=== PATIENT | female | born 1980 | race Two or more races ===

== ENCOUNTER 2021-11-24 16:16 | Outpatient (REF) | payer OTHER, SELFPAY ==
--- NOTE | ~2021-11-24 | MM_ITS ---
EXAMINATION: MM SCREENING DIGITAL BREAST TOMOSYNTHESIS, BILATERAL CLINICAL INFORMATION: Screening. Asymptomatic. No prior mammography. Age 41. No known family history breast cancer. The lifetime risk of breast cancer based on the Tyrer-Cuzick Model is 7%. COMPARISON: None (current study represents initial baseline exam). TECHNIQUE: Digital breast tomosynthesis is performed in both the craniocaudal and mediolateral oblique views along with computer-aided detection (CAD). Synthesized 2D images are generated from the tomosynthesis. FINDINGS: There are scattered areas of fibroglandular density (ACR BI-RADS breast composition Category b). There are no significant masses, abnormal calcifications, or other abnormalities. The axilla and skin contours are unremarkable. MM/MM tomosynthesis screening BI IMPRESSION: No mammographic evidence of malignancy. ASSESSMENT: BI-RADS 1: Negative RECOMMENDATION: Routine annual mammography screening. This patient's information was entered into a reminder system with a target due date for their next mammogram.
== END 2021-11-24 16:17 | disposition home or self-care (01) ==
LOC: HO.MAMMO 16:16
PROVIDERS: Visit Provider Nurse Practitioner Family
DX: Z12.31 Encounter for screening mammogram for malignant neoplasm of breast (principal)
CPT/HCPCS: 77063; 77067

== ENCOUNTER 2022-04-04 15:38 | Outpatient (REF) | payer OTHER, SELFPAY ==
--- NOTE | ~2022-04-04 | US_ITS ---
EXAMINATION: US PELVIS CLINICAL INFORMATION: Abnormal vaginal bleeding. Dyspareunia. Dysmenorrhea. COMPARISON: None. TECHNIQUE: Ultrasound of the pelvis is performed using both transabdominal and transvaginal transducers along with Doppler. Transvaginal imaging is performed due to inadequate visualization transabdominally. FINDINGS: Uterus: The uterus is anteverted, anteflexed and measures 7.3 x 4.1 x 5.8 cm. The double wall endometrial thickness is 0.7 cm. The uterus is smooth in contour and has normal myometrial echogenicity. No visible fibroid. Adnexa: Both ovaries are visualized. There is normal color flow to the adnexa. There is no ovarian torsion. There is no pelvic ascites or fluid collection. Right ovary measures 2.9 x 1.4 x 1.3 cm and volume 2.8 mL. Left ovary measures 2.6 x 1.4 1.8 cm and volume 3.4 mL. US/US pelvic and transvaginal IMPRESSION: Anteverted uterus appears unremarkable. The ovaries are unremarkable. There is no free fluid in the cul-de-sac.
== END 2022-04-04 15:39 | disposition home or self-care (01) ==
LOC: HO.US 15:38
PROVIDERS: Visit Provider Nurse Practitioner Family
DX: N93.9 Abnormal uterine and vaginal bleeding, unspecified (principal); N94.10 Unspecified dyspareunia; N94.6 Dysmenorrhea, unspecified
CPT/HCPCS: 76830; 76856

== ENCOUNTER 2022-05-18 15:12 | Outpatient (REF) | payer OTHER, SELFPAY ==
[2022-05-19 14:03] LABS: CT PCR NOT DETECTED (Not Detect.); NG PCR NOT DETECTED (Not Detect.)
[2022-05-20 09:14] LABS: BV Int Neg Control Negative (Negative)
[2022-05-20 09:15] LABS: BV Int Pos Control Positive (Positive)
== END 2022-05-18 15:13 | disposition home or self-care (01) ==
LOC: HO.LAB 15:12
PROVIDERS: Visit Provider Advanced Practice Midwife
DX: Z11.3 Encounter for screening for infections with a predominantly sexual mode of transmission (principal); N92.0 Excessive and frequent menstruation with regular cycle; N94.6 Dysmenorrhea, unspecified; Z20.2 Contact with and (suspected) exposure to infections with a predominantly sexual mode of transmission
CPT/HCPCS: 87480; 87491; 87510; 87591; 87660; 99202

== ENCOUNTER 2022-07-27 | Outpatient (REF) | payer OTHER, SELFPAY | END 2022-07-27 00:01 | disposition home or self-care (01) | LOC: HO.LAB | PROVIDERS: Visit Provider Advanced Practice Midwife | DX: N93.9 Abnormal uterine and vaginal bleeding, unspecified (principal); N94.6 Dysmenorrhea, unspecified; N92.0 Excessive and frequent menstruation with regular cycle; R21 Rash and other nonspecific skin eruption | CPT/HCPCS: 58100; 81025; 88305 ==

== ENCOUNTER → 2022-08-10 15:02 | Outpatient (BNVA) | payer OTHER, SELFPAY | PROVIDERS: Visit Provider Advanced Practice Midwife | DX: Z71.2 Person consulting for explanation of examination or test findings (principal); N92.0 Excessive and frequent menstruation with regular cycle; N94.6 Dysmenorrhea, unspecified; R21 Rash and other nonspecific skin eruption | CPT/HCPCS: 99212 ==

== ENCOUNTER 2023-10-04 16:16 | Outpatient (REF) | payer OTHER, SELFPAY ==
[2023-10-04 17:31] LABS: Hematocrit 32.9 % (37.0-47.0); Hemoglobin 10.5 g/dl (12.0-16.0); Mean Corpuscular HGB Conc 31.9 g/dl (31.0-35.0); Mean Corpuscular Hemoglobin 23.3 pg (27.0-33.0); Mean Corpuscular Volume 73.1 fL (80.0-98.0); Mean Platelet Volume 10.3 fL (9.4-12.3); Platelet Count 291 X10*3/uL (160-400); Red Cell Distribution Width 16.1 % (11.0-16.0); White Blood Count 5.5 X10*3/uL (4.8-10.8)
[2023-10-04 17:47] LABS: Alanine Aminotransferase 21 U/L (0-31); Albumin Level 4.3 g/dL (3.5-5.0); Alkaline Phosphatase 88 U/L (39-117); Anion Gap 7 (12-20); Aspartate Amino Transferase 21 U/L (5-31); Bilirubin Total 0.3 mg/dL (0.0-1.0); Blood Urea Nitrogen 6 mg/dL (9-16); Calcium 8.8 mg/dL (8.4-10.2); Carbon Dioxide 25 mmol/L (22-29); Chloride 111 mmol/L (96-108); Estimated Glomerular Filt Rate > 60; Glucose Random 93 mg/dL (60-115); Potassium 3.6 mmol/L (3.3-5.1); Sodium 139 mmol/L (135-145); Total Protein 7.9 g/dL (6.5-8.0)
[2023-10-04 18:02] LABS: Vitamin D 25-OH Total 27.6 ng/mL (>30)
[2023-10-05 05:07] LABS: HBc Num1 0.12 S/CO (0.00-0.79); HIV AB/AG Nonreactive (Nonreactive); HIV Num 1 0.05 S/CO (0.00-0.99); Hepatitis B Core Antibody Nonreactive (Nonreactive); ~HepC Num1 0.05 S/CO (0.00-0.79); ~Hepatitis C Antibody Nonreactive (Nonreactive)
[2023-10-05 05:09] LABS: Syphilis Screen Nonreactive (Nonreactive)
== END 2023-10-04 16:17 | disposition home or self-care (01) ==
LOC: HO.HHCL 16:16
PROVIDERS: Visit Provider Internal Medicine
DX: E55.9 Vitamin D deficiency, unspecified (principal); N92.6 Irregular menstruation, unspecified; Z11.3 Encounter for screening for infections with a predominantly sexual mode of transmission
CPT/HCPCS: 36415; 80053; 82306; 85027; 86704; 86780; 86803; 87389

== ENCOUNTER 2024-01-03 08:55 | Outpatient (REF) | payer OTHER, SELFPAY ==
[2024-01-03 12:58] LABS: Iron 20 mcg/dL (30-160); Percent Iron Saturation 5 % (15-50); Total Iron Binding Capacity 409 mcg/dL (228-428); Unsaturated Iron Binding 389 ug/dL
[2024-01-03 13:20] LABS: Ferritin 13 ng/mL (10-250)
== END 2024-01-03 08:56 | disposition home or self-care (01) ==
LOC: HO.HHCL 08:55
PROVIDERS: Visit Provider Nurse Practitioner
DX: D64.9 Anemia, unspecified (principal)
CPT/HCPCS: 36415; 82728; 83540; 84443

== ENCOUNTER 2024-01-18 15:28 | Outpatient (REF) | payer OTHER, SELFPAY | END 2024-01-18 15:29 | disposition home or self-care (01) | LOC: HO.MAMMO 15:28 | PROVIDERS: PCP Nurse Practitioner; Visit Provider Nurse Practitioner | DX: Z12.31 Encounter for screening mammogram for malignant neoplasm of breast (principal) | CPT/HCPCS: 77063; 77067 ==

== ENCOUNTER → 2024-01-18 15:45 | Outpatient (BNV) | payer OTHER, SELFPAY | PROVIDERS: PCP Nurse Practitioner; Visit Provider Radiology Diagnostic Radiology | DX: Z12.31 Encounter for screening mammogram for malignant neoplasm of breast (principal) | CPT/HCPCS: 77063; 77067 ==

== ENCOUNTER 2024-06-19 16:36 | Outpatient (REF) | payer OTHER, SELFPAY ==
[2024-06-19 18:25] LABS: MANUAL DIFF FLAG NO
[2024-06-19 18:38] LABS: Basophils Percent Auto 0.1 % (0-2); Eosinophils Absolute Auto 0.3 X10*3/uL (0.0-0.4); Eosinophils Percent Auto 3.9 % (0-4); Hematocrit 32.6 % (37.0-47.0); Hemoglobin 10.3 g/dl (12.0-16.0); Imm Gran Abs Auto 0.01 X10*3/uL (0.00-0.03); Imm Gran Pct Auto 0.1 % (0.0-0.4); Lymphocytes Percent Auto 27.2 % (20-40); Mean Corpuscular HGB Conc 31.6 g/dl (31.0-35.0); Mean Corpuscular Hemoglobin 23.8 pg (27.0-33.0); Mean Corpuscular Volume 75.5 fL (80.0-98.0); Mean Platelet Volume 9.9 fL (9.4-12.3); Monocytes Absolute Auto 0.5 X10*3/uL (0.1-1.2); Monocytes Percent Auto 6.5 % (2-11); Neutrophils Absolute Auto 4.5 x10*3/uL (2.0-8.3); Neutrophils Percent Auto 62.2 % (45-73); Platelet Count 342 X10*3/uL (160-400); Red Blood Count 4.32 X10*6/uL (4.20-5.50); Red Cell Distribution Width 15.9 % (11.0-16.0); White Blood Count 7.3 X10*3/uL (4.8-10.8)
[2024-06-20 05:15] LABS: HBsAGNum1 0.28 S/CO (0.00-0.99); Hepatitis B Surface Antigen Negative (Negative); ~Hepatitis B Surface Antibody REACTIVE (Nonreactive)
[2024-06-21 11:51] LABS: Anion Gap 14 (12-20); Blood Urea Nitrogen 10 mg/dL (9-16); Calcium 8.9 mg/dL (8.4-10.2); Carbon Dioxide 21 mmol/L (22-29); Chloride 110 mmol/L (96-108); Estimated Glomerular Filt Rate > 60; Glucose Random 92 mg/dL (60-115); Iron 18 mcg/dL (30-160); Percent Iron Saturation 4 % (15-50); Potassium 4.5 mmol/L (3.3-5.1); Sodium 140 mmol/L (135-145); Total Iron Binding Capacity 413 mcg/dL (228-428); Unsaturated Iron Binding 395 ug/dL
[2024-06-21 12:05] LABS: Ferritin 8 ng/mL (10-250); Vitamin D 25-OH Total 23.9 ng/mL (>30)
== END 2024-06-19 16:37 | disposition home or self-care (01) ==
LOC: HO.HHCL 16:36
PROVIDERS: Visit Provider Nurse Practitioner
DX: D50.0 Iron deficiency anemia secondary to blood loss (chronic) (principal); A64 Unspecified sexually transmitted disease; D64.9 Anemia, unspecified; E55.9 Vitamin D deficiency, unspecified
CPT/HCPCS: 36415; 80048; 82306; 82728; 83540; 85025; 86706; 87340

== ENCOUNTER 2024-10-23 18:44 | Emergency (ER) | payer OTHER, SELFPAY ==
--- NOTE | ~2024-10-23 | CT_ITS ---
EXAMINATION: CT HEAD WITHOUT CONTRAST CLINICAL INFORMATION: Headache. Visual changes. COMPARISON: None available. TECHNIQUE: Contiguous axial imaging was performed from the skull base to vertex without intravenous administration of contrast. This CT examination was performed using dose optimization techniques as appropriate, variously including the following: *Automated exposure control. *Adjustment of mA and/or kV according to patient size (this includes techniques or standardized protocols for targeted exams where dose is matched to indication/reason for exam; i.e. extremities or head). *Use of iterative reconstruction technique. DLP: 562 mGy-cm FINDINGS: There is no evidence of acute intracranial hemorrhage or edematous territorial infarction. Mtz-white matter differentiation is preserved. There is no abnormal attenuation within the brain parenchyma. The ventricles are normal in morphology and size. No evidence for obstructive hydrocephalus. The suprasellar cistern remains widely patent. Normal positioning of the cerebellar tonsils. No abnormal mass effect or midline shift. No extra-axial fluid collections. No acute soft tissue or osseous abnormalities. Mild mucosal thickening of the paranasal sinuses. The mastoid air cells and middle ear cavities are clear. No demonstrated abnormalities of the orbits on limited evaluation. CT/CT head/brain wo IV con IMPRESSION: No evidence of acute intracranial hemorrhage or edematous territorial infarction. Electronically signed by: Jack Conrad DO 10/23/2024 09:33 PM EST
--- NOTE | 2024-10-23 18:49 | ED_ITS ---
HPI - Headache General Chief Complaint: Headache Stated Complaint: blurry vision/headache Time Seen by Provider: 10/23/24 21:42 Source: patient Mode of arrival: ambulatory Limitations: no limitations History of Present Illness ED Provider: zaheer YU Narrative: Patient with no significant past medical history noticing flushing of the light from the left eye and started having headache today on the left side with light sensitivity no nausea no vomiting never had migraine headaches before patient had labs and CT scan done prior to my evaluation which was normal no loss of vision no fever no chills Related Data Home Medications ?Medication ?Instructions ?Recorded ?Confirmed cholecalciferol (vitamin D3) 25 25 mcg PO DAILY 05/18/22 mcg (1,000 unit) capsule ferrous sulfate 325 mg (65 mg 325 mg PO DAILY 05/18/22 iron) tablet (Feosol) Previous Rx's ?Medication ?Instructions ?Recorded hdncunqjjs-jpacvvazvglws-jfpdmzge 1 tab PO Q6H PRN haeadace #20 tabs 10/23/24 50 mg-325 mg-40 mg tablet Allergies Allergy/AdvReac Type Severity Reaction Status Date / Time No Known Allergies Allergy Verified 10/23/24 18:56 Review of Systems 2 Review of Systems: Yes all other systems are reviewed and are negative PMFSH Past Medical History Medical History Anemia Surgical History Hx of section Family History Family History Father Cirrhosis Social History Social History Household Members: Spouse and Children Housing: Apartment Alcohol intake: never Patient Tobacco Use Status: Never used Tobacco Advance Directives: No Advance Directives Information Provided: No Sexual orientation: Straight/Heterosexual Gender identity: Female Physical Exam 2 Vital Signs: Vital Signs: Last Vital Signs Temp 98.1 F 10/24/24 00:28 Pulse 60 10/24/24 00:28 Resp 18 10/24/24 00:28 BP 111/66 10/24/24 00:28 Pulse Ox 99 10/24/24 00:28 O2 Del Method Room Air 10/24/24 00:28 BMI result Body Mass Index 28.2 Appearance: Alert. Oriented X3. No acute distress. Eyes: No pallor or icterus fundus normal bilaterally EOMI visual hoffman normal ENT: Pharynx normal. Oral Mucosa moist no tenderness of temporal artery Neck: Normal inspection. Neck supple. CVS: Normal heart rate and rhythm. Pulses normal. Respiratory: No respiratory distress. Equal air entry bilateral, no wheezing/rales/rhonchi Abdomen: Soft and nontender. Bowel sounds are present, no mass palpable, no CVA tenderness Skin: Skin warm and dry. Normal skin color. Normal skin turgor. Extremities: No lower extremity edema. No calf tenderness Neuro: Oriented X 3. No motor deficit. No sensory deficit.No cerebellar signs , cranial nerves II-XII intact Course Course Course Narrative: This is a Rapid Medical Exam performed in triage by Mónica Colunga PA-C. Full HPI, ROS and PE to be performed by primary ED provider. 44-year-old Mongolian-speaking female with a past medical history of anemia presenting to the ED c/o headache & blurry vision x1 week. Admits to seeing a lot of colors in vision , described as flashing lights, worse in left eye. Denies recent eye procedures. denies glasses or contacts. denies taking AC PE: ambulating w/steady gait, nonfocal Plan: labs, CT, viral testing Medications Administered Discontinued Medications Generic Name Dose Route Start Last Admin Trade Name Freq PRN Reason Stop Dose Admin Diphenhydramine HCl 25 mg 10/24/24 00:05 10/24/24 00:28 Diphenhydramine Hcl 25 Mg Capsule PO 10/24/24 00:06 Not Given ONCE ONE Sumatriptan Succinate 6 mg 10/23/24 22:10 10/23/24 22:41 Sumatriptan Succinate 6 Mg/0.5 Ml Vial SUBCUT 10/23/24 22:11 6 mg ONCE ONE Administration Medical Decision Making Medical Decision Making [facility] Narrative: Patient with left-sided headache with light sensitivity likely migraine headache will give Imitrex Patient is feeling much better after Imitrex Lab Data [facility] Lab Attestation statement: I reviewed the patient's lab results. 10/23/24 19:10 10/23/24 19:10 Labs: Lab Results 10/23/24 Range/Units 19:10 WBC 6.3 (4.8-10.8) X10*3/uL RBC 4.03 L (4.20-5.50) X10*6/uL Hgb 9.3 L (12.0-16.0) g/dl Hct 29.1 L (37.0-47.0) % MCV 72.2 L (80.0-98.0) fL MCH 23.1 L (27.0-33.0) pg MCHC 32.0 (31.0-35.0) g/dl RDW 15.9 (11.0-16.0) % Plt Count 294 (160-400) X10*3/uL MPV 9.0 L (9.4-12.3) fL Immature Gran % (Auto) 0.3 (0.0-0.4) % Neut % (Auto) 54.1 (45-73) % Lymph % (Auto) 35.6 (20-40) % [place] % (Auto) 7.3 (2-11) % Eos % (Auto) 2.4 (0-4) % Baso % (Auto) 0.3 (0-2) % Lymph # (Auto) 2.3 (1.2-4.9) X10*3/uL [place] # (Auto) 0.5 (0.1-1.2) X10*3/uL Eos # (Auto) 0.2 (0.0-0.4) X10*3/uL Baso # (Auto) 0.0 (0.0-0.2) X10*3/uL Abs Immat Gran (auto) 0.02 (0.00-0.03) X10*3/uL Absolute Neuts (auto) 3.4 (2.0-8.3) x10*3/uL Absolute Nucleated RBC 0.000 (0.0-0.012) X10*3/uL Nucleated RBC % (auto) 0.0 (0.0-0.2) /100WBC PT 11.7 (10.9-12.4) SEC INR 1.0 (0.9-1.1) Sodium 141 (135-145) mmol/L Potassium 3.8 (3.3-5.1) mmol/L Chloride 107 (96-108) mmol/L Carbon Dioxide 23 (22-29) mmol/L Anion Gap 15 (12-20) BUN 13 (9-16) mg/dL Creatinine 0.80 (0.5-1.4) mg/dL Estim Creat Clear Calc 85.3 Estimated GFR > 60 Random Glucose 102 (60-115) mg/dL Calcium 8.2 L D (8.4-10.2) mg/dL Magnesium 2.3 (1.6-2.6) mg/dL Total Bilirubin 0.2 (0.0-1.0) mg/dL Direct Bilirubin < 0.2 (0.0-0.5) mg/dL AST 28 (5-31) U/L ALT 37 H (0-31) U/L Alkaline Phosphatase 91 (39-117) U/L Total Protein 7.2 (6.5-8.0) g/dL Albumin 4.0 (3.5-5.0) g/dL Influenza Type A (PCR) NEGATIVE (Negative) Influenza Type B (PCR) NEGATIVE (Negative) RSV RNA Qual (PCR) NEGATIVE (Negative) SARS-CoV-2 RNA (RT-PCR) NEGATIVE (Negative) Discharge Plan Discharge Clinical Impression: Migraine Patient Disposition: Home, Self-Care Instructions: Migraine Headache (ED) Additional Instructions: Your headache is likely from the migraine Take Fioricet 1 tablet every 6-8 hours as needed for the headache Follow up with your PCP Prescriptions: New ibhutwkkth-mdtpdzpwffegn-flxs 50-325-40 mg tablet 1 tab PO Q6H PRN (Reason: haeadace) Qty: 20 0RF No Action cholecalciferol (vitamin D3) 25 mcg (1,000 unit) capsule 25 mcg PO DAILY ferrous sulfate [Feosol] 325 mg (65 mg iron) tablet 325 mg PO DAILY Interventions: ED Discharge Assessment Last Done: 10/24/24 00:28 Discharge Date/Time: 10/24/24 00:28 Print Language: Mongolian
[2024-10-23 18:51] VITALS: BP 146/73; PULSE 82; RESP 18; TEMP 36.7; O2SAT 100; BMI 28.2
[2024-10-23 19:17] LABS: MANUAL DIFF FLAG NO
[2024-10-23 19:18] LABS: Basophils Percent Auto 0.3 % (0-2); Eosinophils Absolute Auto 0.2 X10*3/uL (0.0-0.4); Eosinophils Percent Auto 2.4 % (0-4); Hematocrit 29.1 % (37.0-47.0); Hemoglobin 9.3 g/dl (12.0-16.0); Imm Gran Abs Auto 0.02 X10*3/uL (0.00-0.03); Imm Gran Pct Auto 0.3 % (0.0-0.4); Lymphocytes Absolute Auto 2.3 X10*3/uL (1.2-4.9); Lymphocytes Percent Auto 35.6 % (20-40); Mean Corpuscular Hemoglobin 23.1 pg (27.0-33.0); Mean Corpuscular Volume 72.2 fL (80.0-98.0); Monocytes Absolute Auto 0.5 X10*3/uL (0.1-1.2); Monocytes Percent Auto 7.3 % (2-11); Neutrophils Absolute Auto 3.4 x10*3/uL (2.0-8.3); Neutrophils Percent Auto 54.1 % (45-73); Platelet Count 294 X10*3/uL (160-400); Red Blood Count 4.03 X10*6/uL (4.20-5.50); Red Cell Distribution Width 15.9 % (11.0-16.0); White Blood Count 6.3 X10*3/uL (4.8-10.8)
[2024-10-23 19:30] LABS: Alanine Aminotransferase 37 U/L (0-31); Alkaline Phosphatase 91 U/L (39-117); Anion Gap 15 (12-20); Aspartate Amino Transferase 28 U/L (5-31); Bilirubin Direct < 0.2 mg/dL (0.0-0.5); Bilirubin Total 0.2 mg/dL (0.0-1.0); Blood Urea Nitrogen 13 mg/dL (9-16); Calcium 8.2 mg/dL (8.4-10.2); Carbon Dioxide 23 mmol/L (22-29); Chloride 107 mmol/L (96-108); Creatinine Clr Calc Pharmacy 85.3; Estimated Glomerular Filt Rate > 60; Glucose Random 102 mg/dL (60-115); Magnesium 2.3 mg/dL (1.6-2.6); Potassium 3.8 mmol/L (3.3-5.1); Sodium 141 mmol/L (135-145); Total Protein 7.2 g/dL (6.5-8.0)
[2024-10-23 19:34] LABS: Prothrombin Time 11.7 SEC (10.9-12.4)
[2024-10-23 19:53] LABS: Influenza A PCR NEGATIVE (Negative); Influenza B PCR NEGATIVE (Negative); Resp Syncy Virus RNA Qual PCR NEGATIVE (Negative); SARS COV2 PCR INHOUSE NEGATIVE (Negative)
[2024-10-23 22:18] VITALS: BP 111/66; PULSE 60; RESP 18; TEMP 36.7; O2SAT 99
[2024-10-23] MEDS: SUMAtriptan succinate 6 MG/0.5 ML VIAL SUBCUT (22:41)
[2024-10-24 00:28] VITALS: BP 111/66; PULSE 60; RESP 18; TEMP 36.7; O2SAT 99
== END 2024-10-24 00:28 | disposition home or self-care (01) ==
PROVIDERS: Physician Assistant; Emergency Provider Internal Medicine; PCP Nurse Practitioner
DX: G43.909 Migraine, unspecified, not intractable, without status migrainosus (principal); Z03.818 Encounter for observation for suspected exposure to other biological agents ruled out
CPT/HCPCS: 0241U; 36415; 70450; 80048; 80076; 83735; 85025; 85610; 96372; 99283; 99284; J3030

== ENCOUNTER 2024-12-20 09:57 | Outpatient (REF) | payer OTHER, SELFPAY ==
--- OUTSIDE RECORDS SUMMARY | 2024-12-20 10:59 | XMS_ITS | Encounter Summary ---
Author Organization [employer] Address [address] [facility] 7 [place] [address] Care Team Providers Care Bathroom Tiling Professional Name Role Phone Varsha Sherman NP Primary Care Provider [phone] Reason for Visit * Reason Onset Date Comments chartprep 12/13/2024 Encounter Details Date Type Department Care Team ([facility] st Contact Info) Description 12/13/2024 Telephone [facility] [address] [place] [address] Jeff Paulino [place] chartprep Social History Tobacco Use Types Packs/Day Years Used Date Smoking Tobacco: Never Smokeless Tobacco: Never Alcohol Use Standard Drinks/Week Comments Never 0 (1 standard drink = 0.6 oz pur e alcohol) Depression Answer Date Recorded Patient Health Questionnaire-9 Score 0 06/19/2024 Patient Health Questionnaire-9 Score 0 06/19/2024 Last PHQ-9: Questionnaire Data Not on file 0 06/19/2024 Housing Stability Answer Date Recorded What is your housing situation today? I have navneet priest 09/27/[address] you li ve. Do you have problems with any of the following? None of the above 09/27/2023 Food Insecurity Answer Date Recorded Within the past 12 months, y ou worried that your food would run out before you got money to buy more: Never True 09/27/2023 Within the past 12 months,th e food you bought just didn't last and you didn't have enough money to get more: Never True 11/2022 Transportation Answer Date Recorded In the past 12 months, has l ack of transportation kept you from medical appts, meetings, work or from getting things needed for daily living? No 09/27/2023 Utilities Answer Date Recorded In the past 12 months, has t he electric, gas, oil or water company threatened to shut off services in your home? No 09/27/2023 Depression Answer Date Recorded Patient Health Questionnaire-2 Score 0 06/19/2024 Comments Unknown Sex and Gender Information Value Date Recorded Sex Assigned at Female 09/26/2022 10:17 AM EDT Legal Sex Female 10:17 AM EDT Gender Identity Female 09/26/2022 10:17 AM EDT Sexual Orientation Straight 09/26/2022 10 :17 AM EDT documented as of this encounter Miscellaneous Notes * Telephone Encounter - Jeff Paulino [place] - 12/13/2024 11:34 AM EST Chart Prep Labs: done Images: done Vaccines due: Covid Due, Hep B Due, and Flu Due Referrals: Completed Screenings: Not Applicable Overdue care gaps: SDOH and Oral Health documented in this encounter Plan of Treatment Not on file documented as of this encounter Visit Diagnoses Not on filedocumented in this encounter Additional Health Concerns Assessment Noted Time PHQ-9 Depression Total Score: 0 06/19/20 24 3:44 PM EDT documented as of this encounter Care Teams Bathroom Tiling Professional Relationship Specialty Start Date End Date Varsha Sherman NP [address] [place] [address] PCP - General Family Medicine 12/21/23 documented as of this encounter
--- OUTSIDE RECORDS SUMMARY | 2024-12-20 10:59 | XMS_ITS | Encounter Summary ---
Author Organization [facility] Address [address] [place] [id number] Care Team Providers Care Toy Designer Name Role Phone BrookfieldFátima gutierrez HOSPITAL MORTICIAN Primary Care Provider [phone] Varsha Sherman NP Primary Care Provider [phone] Eduarda Hadley MD Primary Care Provider [phone] AppraVarsha herring NP Primary Care Provider [phone] Encounter Details Date Type Department Care Team (Latest Contact Info) Description 07/21/2021 Abstract [facility] CONVERSIONS Dental, Provider, DDS Social History Tobacco Use Types Packs/Day Years Used Date Smoking Tobacco: Never Assessed Comments Unknown Sex and Gender Information Value Date Recorded Sex Assigned at Female 09/26/2022 10:17 AM EDT Legal Sex Female 10:17 AM EDT Gender Identity Female 09/26/2022 10:17 AM EDT Sexual Orientation Straight 09/26/2022 10 :17 AM EDT documented as of this encounter Plan of Treatment Not on file documented as of this encounter Visit Diagnoses Not on filedocumented in this encounter Care Teams Toy Designer Relationship Specialty Start Date End Date BrookfieldFátima FNP [address] [place] [address] PCP - General Family Medicine 07/21/22 09/04/23 Varsha Sherman NP [address] [place] [address] PCP - General Family Medicine 09/05/23 10/29/23 Eduarda Hadley MD [address] [place] [address] PCP - General Family Medicine 10/30/23 12/20/23 Varsha Sherman NP [address] [place] [address] PCP - General Family Medicine 12/21/23 documented as of this encounter
--- OUTSIDE RECORDS SUMMARY | 2024-12-20 10:59 | XMS_ITS | Encounter Summary ---
Author Organization [employer] Address [address] [facility] 7 [place] [address] Care Team Providers Care Insulating Machine Operator Name Role Phone Varsha Sherman NP Primary Care Provider [phone] Reason for Visit * Reason Comments Med Refill Encounter Details Date Type Department Care Team ([facility] st Contact Info) Description 12/20/2024 Refill [facility] [address] [place], [place] [phone] Varsha Sherman NP [address] [place] [address] Menorrhagia with regular cycle Social History Tobacco Use Types Packs/Day Years [...] housing situation today? I have navneet priest 12/20/[address] you li ve. Do you have problems with any of the following? None of the above 12/20/2024 Food Insecurity Answer Date Recorded Within the past 12 months, y ou worried that your food would run out before you got money to buy more: Never True 12/20/2024 Within the past 12 months,th e food you bought just didn't last and you didn't have enough money to get more: Never True Transportation Answer Date Recorded In the past 12 months, has l ack of transportation kept you from medical appts, meetings, work or from getting things needed for daily living? No 12/20/2024 Utilities Answer Date Recorded In the past 12 months, has t he electric, gas, oil or water company threatened to shut off services in your home? No 12/20/2024 Depression Answer Date Recorded Patient Health Questionnaire-2 Score 0 06/19/2024 Internet Access Answer Date Recorded Internet Access Q1 Yes 12/20/2024 Internet Access Q2 Not on file 12/20/2024 Comments Unknown Sex and Gender Information Value Date Recorded Sex Assigned at Female 09/26/2022 10:17 AM EDT Legal Sex Female 10:17 AM EDT Gender Identity Female 09/26/2022 10:17 AM EDT Sexual Orientation Straight 09/26/2022 10 :17 AM EDT documented as of this encounter Plan of Treatment Not on file documented as of this encounter Visit Diagnoses Diagnosis Menorrhagia with regular cycle documented in this encounter Additional Health Concerns Assessment Noted Time PHQ-9 Depression Total Score: 0 06/19/20 3:44 PM EDT documented as of this encounter Care Teams Insulating Machine Operator Relationship Specialty Start Date End Date Varsha Sherman NP [address] [place] [id number] PCP - General Family Medicine 12/21/23 documented as of this encounter
--- OUTSIDE RECORDS SUMMARY | 2024-12-20 10:59 | XMS_ITS | Encounter Summary ---
Author Organization [employer] Address [address] [facility] [address] [place] [address] Care Team Providers Care Senior Research Project Manager Name Role Phone Lane Varsha FUNG Primary Care Provider [phone] Encounter Details Date Type Department Care Team (Latest Contact Info) Description 12/20/2024 Travel Social History Tobacco Use Types Packs/Day Years [...] documented as of this encounter Care Teams Senior Research Project Manager Relationship Specialty Start Date End Date Varsha Sherman NP [address] [place] [address] PCP - General Family Medicine 12/21/23 documented as of this encounter
--- OUTSIDE RECORDS SUMMARY | 2024-12-20 11:00 | XMS_ITS | Encounter Summary ---
Author Organization [employer] [facility] Address [address] [place] [address] [address] [address] Care Team Providers Care Director Of Elementary Education Name Role Phone WolfforthFátima gutierrez DEMOLITION HAMMER OPERATOR Primary Care Provider [phone] AppraVarsha herring NP Primary Care Provider [phone] Eduarda Hadley MD Primary Care Provider [phone] Appranevaeh, Varsha FUNG Primary Care Provider [phone] Encounter Details Date Type Department Care Team (Latest Contact Info) Description 03/07/2019 Abstract [facility] CONVERSIONS Dental, Provider, DDS Social History Tobacco [...] on filedocumented in this encounter Care Teams Director Of Elementary Education Relationship Specialty Start Date End Date Fátima Deluna FNP [address] [place] [address] PCP - General Family Medicine 07/21/22 09/04/23 Varsha Sherman NP [address] [place] [address] PCP - General Family Medicine 09/05/23 10/29/23 Eduarda Hadley MD [address] [place] [address] PCP - General Family Medicine 10/30/23 12/20/23 Varsha Sherman NP [address] [place] [address] PCP - General Family Medicine 12/21/23 documented as of this encounter
--- OUTSIDE RECORDS SUMMARY | 2024-12-20 11:00 | XMS_ITS | Clinical Summary ---
Author Organization [employer] Address [address] [place] [address] 7 [place] [address] Care Team Providers Care Unix Consultant Name Role Phone Varsha Sherman NP Primary Care Provider [phone] Allergies Active Allergy Reactions Criticality Noted Date Comments Lactose Diarrhea 10/04/2023 Medications Sod Fluoride-Potass ium Nitrate 1.1-5 % pasteIndication s:Dental caries Foster teeth for 2 minutes, morning and night. Spit, do not rinse. Do not eat or drink anything for 30 minutes following brushing. 112 g 3 08/21/20 24 Active metroNIDAZOLE (Metrogel) 1 % gel APPLY TO THE AFFECTED AREA(S) TWICE DAILY 60 g 1 09/30/20 24 Active cholecalciferol (Vitamin D-3) 25 MCG tabletIndicatio ns:Other fatigue TAKE 1 TABLET BY MOUTH EVERY MORNING 30 tablet 3 10/11/20 24 Active ferrous gluconate (Fergon) 324 (38 Fe) MG tabletIndicatio ns:Microcytic anemia Take 1 tablet every other day in the morning with vitamin C 30 tablet 3 12/20/19 25 Active Ascorbic Acid (vitamin C) 250 MG tabletIndicatio ns:Microcytic anemia Take 1 tablet in the morning every other day with ferrous gluconate. 30 tablet 3 12/20/19 25 Active tranexamic acid (Lysteda) 650 MG tablet tabletIndicatio ns:Menorrhagia with regular cycle Take 3 tabs by mouth TID for 5 days during menses 15 tablet 3 12/20/19 25 Active ferrous gluconate (Fergon) 324 (38 Fe) MG tabletIndicatio ns:Anemia, unspecified type Take 1 tablet every other day in the morning with vitamin C 30 tablet 2 06/19/20 24 025 Discontinued(Re order (will not trigger notification to Pharmacy)) Ascorbic Acid (vitamin C) 250 MG tabletIndicatio ns:Anemia, unspecified type Take 1 tablet in the morning every other day with ferrous gluconate. 30 tablet 2 09/18/20 24 025 Discontinued(Re order (will not trigger notification to Pharmacy)) Active Problems Problem Noted Date Diagnosed Date Mixed stress and urge urinary incontinence 06/20 Assessment & Plan (06/20/2024 10:03 AM EDT): -POCT urinalysis negative for infection -Kegels and pelvic tilt exercises taught, if no symptom improvement, will refer to urogyn. -may use pad or panty liner for comfort -follow-up as needed STI (sexually transmitted infection) 02/06/2024 Assessment & Plan (02/06/2024 11:05 PM EDT): -determine hepatitis B status before offering vaccine Encounter for screening mamm ogram for malignant neoplasm of breast 01/03/2024 Assessment & Plan (02/06/2024 11:09 PM EDT): -completed 01/16/2024 -final read not available -will call with results once obtained Assessment & Plan (01/03/2024 10:29 AM EST): -due for routine breast cancer screening Anemia 01/03/2024 Assessment & Plan (06/20/2024 10:16 AM EDT): -continues iron supplementation with vit C every other day -encouraged to increase dietary sources of iron as well -did not complete previously ordered fecal test. Will discuss cologuard testing to determine source of anemia given normal iron panel results -repeat BMP, CBC, and iron panel ordered today -will contact with lab results -follow-up 6 months or sooner Assessment & Plan (02/06/2024 11:05 PM EDT): -likely the cause of fatigue in the setting of normal TSH and negative report of obstructive sleep apnea -fecal blood testing ordered to eval if GI blood loss is source of anemia -repeat CBC ordered to eval treatment progress -advised to continue oral iron supplementation and dietary sources -will call with lab results Assessment & Plan (01/03/2024 10:34 AM EST): -etiology of microcytic anemia unknown -hemoglobin remains low and stable Lab Results Component Value Date/Time HGB 10.1 (A) 01/03/2024 1012 HGB 10.5 (L) 10/04/2023 1621 HGB 10.7 (L) 03/08/2022 1625 HGB 10.3 (L) 10/07/2021 0952 -Fe, TIBC, ferritin, IFOBT labs completed today -every other day iron supplementation with vitamin c initiated in the interim -will consider further work-up (AUB, other causes of microcytic anemia) based on lab results -will call with lab results Fatigue 01/03/2024 Assessment & Plan (01/03/2024 10:26 AM EST): -may be due to lifestyle or anemia -vitamin D insufficient per 09/2023 labs -will investigate thyroid function -rx sent to pharmacy for repletion -daily exercise of 20-30 min advised -follow-up 1 month Routine screening for STI (sexually transmitted infection) 01/03/2024 Assessment & Plan (01/03/2024 1:07 PM EST): -denies concern for infection, but is agreeable to testing -labs ordered Rosacea 01/03/2024 Assessment & Plan (01/03/2024 1:10 PM EST): -stable per pt -refills provided Abnormal uterine bleeding (AUB) 10/12/2021 09/05/2023 Overview (06/19/2024): US ordered last visit not yet obtained US 04/04/22 Ordering Physician: Clarisa Kern NP Date of Service: 04/04/22 Procedure(s): US pelvic and transvaginal Accession Number(s): [id number] cc: Clarisa Kern SALES SECRETARY~ EXAMINATION: US PELVIS CLINICAL INFORMATION: Abnormal vaginal bleeding. Dyspareunia. Dysmenorrhea. COMPARISON: None. TECHNIQUE: Ultrasound of the pelvis is performed using both transabdominal and transvaginal transducers along with Doppler. Transvaginal imaging is performed due to inadequate visualization transabdominally. FINDINGS: Uterus: The uterus is anteverted, anteflexed and measures 7.3 x 4.1 x 5.8 cm. The double wall endometrial thickness is 0.7 cm. The uterus is smooth in contour and has normal myometrial echogenicity. No visible fibroid. Adnexa: Both ovaries are visualized. There is normal color flow to the adnexa. There is no ovarian torsion. There is no pelvic ascites or fluid collection. Right ovary measures 2.9 x 1.4 x 1.3 cm and volume 2.8 mL. Left ovary measures 2.6 x 1.4 1.8 cm and volume 3.4 mL. US/US pelvic and transvaginal IMPRESSION: Anteverted uterus appears unremarkable. The ovaries are unremarkable. There is no free fluid in the cul-de-sac. Dictated By: Yemi Welch MD Assessment & Plan (02/06/2024 11:06 PM EDT): -may be source of anemia -pelvic and transvaginal US ordered to eval for structural causes -normal thyroid function as of 01/03/24 -last pap 2021; will consider repeat based on US findings -consider sureswab to rule out STI infection at next in-person visit -complete endometrial biopsy pending US results and negative testing -discuss contraception methods for bleeding control if symptoms persist despite negative work-up -follow-up 2 months Assessment & Plan (01/03/2024 1:05 PM EST): -may be due to pre-menopause -advised monitoring for specific patterns in irregularities -negative POCT -labs ordered -will consider full work-up at next visit Vitamin D deficiency 07/18/2016 09/05/2023 Assessment & Plan (01/03/2024 1:05 PM EST): -patient reports history of -labs ordered Encounters Date Type Department Care Team Description 12/20/2024 9:00 AM EST Office Visit [facility] [address] [place] [phone] Varsha Sherman NP Microcytic anemia (Primary Dx); Anemia, unspecified type; Menorrhagia with regular cycle; Encounter for immunization; Encounter for screening mammogram for malignant neoplasm of breast; Dietary counseling; Exercise counseling 12/20/2024 Refill [facility] [address] [place] [phone] Varsha Shermna NP Menorrhagia with regular cycle 12/20/2024 Travel 12/13/[address] [phone] Jeff Paulino [place] chartprep 10/23/2024 Orders Only [facility] External Provider, [facility] 10/10/[address] [phone] Varsha Sherman NP Other fatigue 10/08/[address] [address] Varsha Sherman NP November recall 09/30/[address] [address] Varsha Sherman NP from Last 3 Months Immunizations Name Administration Dates Next Due Hep A, Adult 02/12/2020 Hep B, adult 09/21/2022,07/18/2022 Influenza Injectable Quadriv alant Preservative Free IIV4 MDCK 11/03/2020 Influenza injectable quadriv alent preservative free 09/21/2022,10/07/2021,08/23/2021,2019,11/06/2018 Influenza, seasonal, injecta ble, preservative free 12/20/2024 Tdap 07/15/2015,10/01/2013 Zoster, Recombinant 11/03/2020,08/26/2020 Social History Tobacco Use Types Packs/Day Years Used Date Smoking Tobacco: Never Smokeless Tobacco: Never Tobacco Cessation:Counseling Given: Not Answered Alcohol Use Standard Drinks/Week Comments Never 0 [...] Orientation Straight 09/26/2022 10 :17 AM EDT Last Filed Vital Signs Vital Sign Reading Time Taken Comments Blood Pressure 111/70 12/20/2024 9:09 AM EST Pulse 82 12/20/2024 9:09 AM EST Temperature 37 ??C (98.6 ??F) 12/20/2024 9:09 AM EST Respiratory Rate 22 12/20/2024 9:09 AM EST Oxygen Saturation 99% 12/20/2024 9:09 AM EST Inhaled Oxygen Concentration - - Weight 73.3 kg (161 lb 9.6 oz) 12/20/2024 9:09 A M EST Height 157.5 cm (5' 2 ) 12/20/2024 9:09 AM EST Body Mass Index 29.56 12/20/2024 9:09 AM EST Plan of Treatment Health Maintenance Due Date Last Done Comments Family Planning (PISQ) 1995 Dental X-Ray: Full Mouth 07/22/2024 07/21/2021, 03/27 COVID-19 Vaccine ( season) 2024 12/19/2021, 06/04/2021, 05/07/2021 Dental Prophylaxis 12/15/2024 06/13/2024, 0 02/16/2022, 07/21/2021, Additional history exists Dental Oral Exam 02/19/2025 08/21/2024, , 07/04/2017, Additional history exists Pap Smear 03/08/2025 03/08/2022 Dental X-Ray: Bitewings 2025 06/13/20, 01/19/2024, 11/08/2021, Additional history exists Alcohol/Substance Use Screening 06/19/2025 06/19/2024 Depression Screening 06/19/2025 06/19/2024, 06/19/20 DTaP/Tdap/Td Vaccines (3 - Td or Tdap) 07/15/2025 07/15/2015, 10/01/2013 SDOH Screening 12/20/2025 12/20/2024 Tobacco Screening 12/20/2025 12/20/2024 Mammogram 01/18/2026 01/18/2024, 10/28, 11/24/2021 Cervical Cancer Screening 03/08/2027 HPV/Cotest 03/08/2027 03/08/2022 Zoster Vaccines (2 of 2) 2030 11/03/2020, 07/30 RSV Patients and Patients Aged 60 years or older (1 - 1-dose 75+ series) 2055 Hepatitis A Vaccines Aged Out 02/12/2020 No long er eligible based on patient's age to complete this topic Hepatitis B Vaccines Discontinued 09/21/2022, 07/18/20 HIV Screening Completed 10/04/2023, 04/27, 10/07/2021 Hepatitis C Screening Completed 10/04/2023 , 07/18/2022, 05/12/2022 Influenza Vaccine Completed 12/20/2024, , 10/07/2021, Additional history exists HIB Vaccines Aged Out No longer eligi ble based on patient's age to complete this topic HPV Vaccines Aged Out No longer eligi ble based on patient's age to complete this topic IPV Vaccines Aged Out No longer eligi ble based on patient's age to complete this topic Meningococcal Vaccine Aged Out No faustina trisha eligible based on patient's age to complete this topic Pneumococcal Vaccine: Pediatrics (0 to 5 Years) and At-Risk Patients (6 to 64 Years) Aged Out No longer eligible based on patient's age to complete this topic RSV under 20 months Aged Out No longe r eligible based on patient's age to complete this topic Rotavirus Vaccines Aged Out No longer eligible based on patient's age to complete this topic Procedures Procedure Name Priority Date/Time Associated Diagnosis Comments CT HEAD WO CONTRAST Routine 10/23/2024 7 :25 PM EST PROTHROMBIN TIME-INR Routine 10/23/2024 7:10 PM EST MAGNESIUM Routine 10/23/2024 7:10 PM EST BASIC METABOLIC PANEL Routine 10/23/2024 7:10 PM EST HEPATIC FUNCTION PANEL Routine 10/23/2024 7:10 PM EST CBC WITH AUTO DIFFERENTIAL Routine 10/23/2024 7:10 PM EST SARS COV2/INFLUENZA A/B AND RSV RNA QL NAAT Routine 10/23/2024 7:10 PM EST PERIODIC ORAL EVALUATION - ESTABLISHED PATIENT Routine 08/21/2024 3:00 PM EDT Dental caries Symptomatic irreversible pulpitis Full PROPHYLAXIS - ADULT Routine 06/13/2024 3:00 PM EDT Dental plaque Dental calculus BITEWINGS - 4 RADIOGRAPHIC IMAGES Routine 06/13/2024 3:00 PM EDT BI MAMMOGRAM SCREENING TOMOSYNTHESIS BILATERAL Routine 01/18/2024 3:45 PM EST HEPATITIS C AB W/REFL TO HCV RNA, QN, PCR Routine 10/04/2023 4:21 PM EST Routine screening for STI (sexually transmitted infection) HIV 1/2 ANTIGEN/ANTIBODY, FOURTH GENERATION W/RFL Routine 10/04/2023 4:21 PM EST Routine screening for STI (sexually transmitted infection) THINPREP IMAGING PAP AND HPV MRNA E6/E7, WITH CT/NG, TRICHOMONAS Routine 03/08/2022 4:13 PM EDT DIAGNOSTIC - DIAGNOSTIC IMAGING - INTRAORAL - COMPREHENSIVE SERIES OF RADIOGRAPHIC IMAGES Routine 07/21/2021 12:00 AM EDT from Last 3 Months or Most Recently Relevant to Health Maintenance Results * CT Head w/o Contrast (10/23/2024 7:25 PM EST) Anatomical Region Laterality Modality Head, Neck Computed Tomogra phy 10/23/2024 7:25 PM EST Narrative 10/23/2024 9:37 PM EST ? [facility] ?[address] ?[place] [address] ? CT Scan Report ? Signed ? Patient: Niurka Hedrick ?MR#: [id number] ?? [id number] ? : 1980 ?Acct:[id number] ? Age/Sex: 44 / F ?ADM Date: 10/23/24 ? Loc: HO.ED ? Attending Dr: ? Ordering Physician: Mónica Colunga ?? Date of Service: 10/23/24 ?? Procedure(s): CT head/brain wo IV con ?? Accession Number(s): [id number] ? cc: Damion Sherman,Mónica PA ? EXAMINATION: ?? CT HEAD WITHOUT CONTRAST ? CLINICAL INFORMATION: ?? Headache. Visual changes. ? COMPARISON: ?? None available. ? TECHNIQUE: ?? Contiguous axial imaging was performed from the skull base to vertex ?? without intravenous administration of contrast. ? This CT examination was performed using dose optimization techniques as ?? appropriate, variously including the following: ?? *Automated exposure control. ?? *Adjustment of mA and/or kV according to patient size (this includes ?? techniques or standardized protocols for targeted exams where dose is ?? matched to indication/reason for exam; i.e. extremities or head). ?? *Use of iterative reconstruction technique. ? DLP: ?? 562 mGy-cm ? FINDINGS: ?? There is no evidence of acute intracranial hemorrhage or edematous ?? territorial infarction. Mtz-white matter differentiation is preserved. ?? There is no abnormal attenuation within the brain parenchyma. The ?? ventricles are normal in morphology and size. No evidence for ?? obstructive hydrocephalus. The suprasellar cistern remains widely ?? patent. Normal positioning of the cerebellar tonsils. No abnormal mass ?? effect or midline shift. No extra-axial fluid collections. ? No acute soft tissue or osseous abnormalities. Mild mucosal thickening ?? of the paranasal sinuses. The mastoid air cells and middle ear cavities ?? are clear. No demonstrated abnormalities of the orbits on limited ?? evaluation. ? CT/CT head/brain wo IV con ?? IMPRESSION: ?? No evidence of acute intracranial hemorrhage or edematous territorial ?? infarction. ? Electronically signed by: ??Jack Conrda DO ??10/23/2024 09:33 PM EST RP ? Dictated By: ?Nikos Conrad DO ? Signed By: ?<Electronically signed by Nikos Conrad DO in OV> ? 10/23/243 ? DD/ 24 ? TD/TT: 10/23/241924 ? Slot Machine Floor Person: JL ? Procedure Note Dionisio Gaxiola - 10/23/[address] [address] [address] Scan Report Signed Patient: Niurka Hedrick#: [id number] : 1980Acct:[id number] Age/Sex: 44 / FADM Date: 10/23/24 Loc: HO.ED Attending Dr: Ordering Physician: Mónica Colunga Date of Service: 10/23/24 Procedure(s): CT head/brain wo IV con Accession Number(s): [id number] cc: Varsha Sherman; Mónica Colunga EXAMINATION: CT HEAD WITHOUT CONTRAST CLINICAL INFORMATION: Headache. Visual changes. COMPARISON: None available. TECHNIQUE: Contiguous axial imaging was performed from the skull base to vertex without intravenous administration of contrast. This CT examination was performed using dose optimization techniques as appropriate, variously including the following: *Automated exposure control. *Adjustment of mA and/or kV according to patient size (this includes techniques or standardized protocols for targeted exams where dose is matched to indication/reason for exam; i.e. extremities or head). *Use of iterative reconstruction technique. DLP: 562 mGy-cm FINDINGS: There is no evidence of acute intracranial hemorrhage or edematous territorial infarction. Mtz-white matter differentiation is preserved. There is no abnormal attenuation within the brain parenchyma. The ventricles are normal in morphology and size. No evidence for obstructive hydrocephalus. The suprasellar cistern remains widely patent. Normal positioning of the cerebellar tonsils. No abnormal mass effect or midline shift. No extra-axial fluid collections. No acute soft tissue or osseous abnormalities. Mild mucosal thickening of the paranasal sinuses. The mastoid air cells and middle ear cavities are clear. No demonstrated abnormalities of the orbits on limited evaluation. CT/CT head/brain wo IV con IMPRESSION: No evidence of acute intracranial hemorrhage or edematous territorial infarction. Electronically signed by: Jack Conrad DO 10/23/2024 09:33 PM EST Dictated By: Nikos Conrad DO Signed By: <Electronically signed by Nikos Conrad DO in OV> 10/23/242132 DD/ 24 TD/TT: 10/23/241924 Slot Machine Floor Person: [facility] External Provider IMG CT PROCEDURES Edited Result - Final * SARS-CoV-2 RNA, Influenza A/B, and RSV RNA, Ql NAAT (10/23/2024 7:10 PM EST) Influenza A PCR NEGATIVE Negative [facility] Influenza B PCR NEGATIVE Negative [facility] Resp Syncy Virus RNA Qual PCR NEGATIVE Negative [facility] SARS COV2 PCR NEGATIVE Negative [facility] Comment:All test results mus t be correlated with clinical findings.Negative results do not preclude SARS-CoV2, influenza Avirus, influenza B virus and/or RSV infectionand should not be used as the sole basis for treatment orother patient management decisions. Negative results must becombined with clinical observations, patient history, andepidemiological information.This test has not been evaluated for monitoring treatment ofinfection.This test has been authorized by the FDA under an EmergencyUse Authorization (EUA) for use by authorized laboratories.Testing performed on the [employer] GeneXpert utilizingreal-time RT-PCR.All SARS CoV2 and positive influenza A/B results arereported to [facility]. 10/23/2024 7:10 PM EST 10/23/2024 7:14 PM EST us Generic External Data Provider LAB MICROBIOLOGY - GENERAL ORDERABLES Final Result [facility] [address] [place] [phone] * (ABNORMAL) CBC auto differential (10/23/2024 7:10 PM EST) White Blood Count 6.3 4.8 - 10.8 X10*3/uL [facility] Red Blood Count 4.03(L) 4.20 - 5.50 X10*6/uL [facility] Hemoglobin 9.3(L) 12.0 - 16.0 g/dl [facility] Hematocrit 29.1(L) 37.0 - 47.0 % [facility] Mean Corpuscular Volume 72.2(L) 80.0 - 98.0 fL [facility] Mean Corpuscular Hemoglobin 23.1(L) 27.0 - 33.0 pg [facility] Mean Corpuscular HGB Conc 32.0 31.0 - 35.0 g/dl [facility] Red Cell Distribution Width 15.9 11.0 - 16.0 % [facility] Platelet Count 294 160 - 400 X10*3/uL [facility] Mean Platelet Volume 9.0(L) 9.4 - 12.3 fL [facility] Neutrophils Percent Auto 54.1 45 - 73 % [facility] Imm Gran Pct Auto 0.3 0.0 - 0.4 % [facility] Lymphocytes Percent Auto 35.6 20 - 40 % [facility] Monocytes Percent Auto 7.3 2 - 11 % [facility] Eosinophils Percent Auto 2.4 0 - 4 % [facility] Basophils Percent Auto 0.3 0 - 2 % [facility] NRBC Pct Auto 0.0 0.0 - 0.2 /100WBC [facility] Neutrophils Absolute Auto 3.4 2.0 - 8.3 x10*3/uL [facility] Imm Gran Abs Auto 0.02 0.00 - 0.03 X10*3/uL [facility] Lymphocytes Absolute Auto 2.3 1.2 - 4.9 X10*3/uL [facility] Monocytes Absolute Auto 0.5 0.1 - 1.2 X10*3/uL [facility] Eosinophils Absolute Auto 0.2 0.0 - 0.4 X10*3/uL [facility] Basophils Absolute Auto 0.0 0.0 - 0.2 X10*3/uL [facility] NRBC Abs Auto 0.000 0.0 - 0.012 X10*3/uL [facility] 10/23/2024 7:10 PM EST 10/23/2024 7:14 PM EST us Generic External Data Provider LAB BLOOD ORDERAB LES Final Result [facility] [address], [place] [phone] * Prothrombin Time-INR (10/23/2024 7:10 PM EST) Prothrombin Time 11.7 10.9 - 12.4 SEC [facility] INTERNATIONAL NORM RATIO 1.0 0.9 - 1.1 [facility] Comment:INTERNATIONAL NORMAL IZED RATIO (INR) REFERENCE RANGES Reference RangeFor patients not on anticoagulant therapy: 0.9 - 1.1INR ranges for oral anticoagulanttherapy:For prevention and treatment of venous thrombosis and pulmonary embolism: 2.0 - 3.0For acute myocardial infarction with aspirin therapy: 2.0 - 3.0For acute myocardial infarction without aspirin therapy: 3.0 - 4.0For patients with mechanical prosthetic heart valves: 2.5 - 3.5 10/23/2024 7:10 PM EST 10/23/2024 7:14 PM EST Generic External Data Provider LAB BLOOD ORDERAB LES Final Result Performing Organization Address [facility]/ZIP Co de Phone Number [facility] [address] [place] [phone] * Magnesium (10/23/2024 7:10 PM EST) Magnesium 2.3 1.6 - 2.6 mg/dL [facility] 10/23/2024 7:10 PM EST 10/23/2024 7:14 PM EST [employer] External Data Provider LAB BLOOD ORDERAB LES Final Result Performing Organization Address [facility] Co de Phone Number [facility] [address] [place] [phone] * (ABNORMAL) Hepatic Function Panel (10/23/2024 7:10 PM EST) Bilirubin, Total 0.2 0.0 - 1.0 mg/dL [facility] Bilirubin, Direct <0.2 0.0 - 0.5 mg/dL [facility] Aspartate Amino Transferase 28 5 - 31 U/L [facility] Alanine Aminotransferase 37(H) 0 - 31 U/L [facility] Total Protein 7.2 6.5 - 8.0 g/dL [facility] Albumin Level 4.0 3.5 - 5.0 g/dL [facility] Alkaline Phosphatase 91 39 - 117 U/L [facility] 10/23/2024 7:10 PM EST 10/23/2024 7:14 PM EST us Generic External Data Provider LAB BLOOD ORDERAB LES Final Result Performing Organization Address City/[facility]/ZIP Co de Phone Number [facility] [address] [place] [phone] * (ABNORMAL) Basic Metabolic Panel (10/23/2024 7:10 PM EST) Sodium 141 135 - 145 mmol/L [facility] Potassium 3.8 3.3 - 5.1 mmol/L [facility] Chloride 107 96 - 108 mmol/L [facility] Carbon Dioxide 23 22 - 29 mmol/L [facility] Anion Gap 15 12 - 20 [facility] Urea Nitrogen (BUN) 13 9 - 16 mg/dL [facility] Creatinine, Serum 0.80 0.5 - 1.4 mg/dL [facility] Creatinine Clr Calc Pharmacy 85.3 [facility] Comment:Provided height and weight: 160.02 cm,72.1 kg.eGFR (calculated from the MDRD study equation) and eCrCl(calculated from the Cockcroft-Gault equation) are based ondifferent parameters and may not yield comparable results.If eCrCl result is absurd, please check patient'sheight/weight. Estimated Glomerular Filt Rate >60 [facility] Comment:Chronic Kidney Disea se: Estimated GFR < 60 mL/min/[id number] Kidney Disease: Estimated GFR < 15 mL/min/1.73m2 Glucose 102 60 - 115 mg/dL [facility] Calcium 8.2(L) 8.4 - 10.2 mg/dL [facility] 10/23/2024 7:10 PM EST 10/23/2024 7:14 PM EST us Generic External Data Provider LAB BLOOD ORDERAB LES Final Result Performing Organization Address City/[facility]/ZIP Co de Phone Number [facility] [address] [place] [phone] * BI Mammogram Screening Tomosynthesis Bilateral (01/18/2024 3:45 PM EST) Anatomical Region Laterality Modality Breast Bilateral Mammography 01/18/2024 3:45 PM EST Narrative 02/11/2024 9:43 AM EDT ? Kenneth [facility] [place] ? [address] ?[place] [address] ? Mammography Report ? Signed ? Patient: Niurka Hedrick ?MR#: [id number] ?? [id number] ? : 1980 ?Acct:[id number] ? Age/Sex: 43 / F ?ADM Date: 01/18/24 ? Loc: HO.MAMMO ? Attending Dr: Varsha Appram ? Ordering Physician: Appram,Varsha ?Results: 1Negative ? Date of Service: 01/18/24 ?Follow Up: 1 Year From Orig ?? inal Mammogram ? Procedure(s): MM tomosynthesis screening BI ?? Accession Number(s): [id number] ? cc: Lane,Varsha ? EXAMINATION: ?? MM SCREENING DIGITAL BREAST TOMOSYNTHESIS, BILATERAL ? CLINICAL INFORMATION: ? Screening. Asymptomatic. ? COMPARISON: ?? Mammography: This study is compared with prior exams dating back to ?? 2020. ? TECHNIQUE: ?? Digital breast tomosynthesis is performed in both the craniocaudal and ?? mediolateral oblique views along with computer-aided detection (CAD). ?? Synthesized 2D images are generated from the tomosynthesis. ? FINDINGS: ?? There are scattered areas of fibroglandular density (ACR BI-RADS breast ?? composition Category b). ? There are no significant masses, abnormal calcifications, or other ?? abnormalities. ? MM/MM tomosynthesis screening BI ?? IMPRESSION: ?? No mammographic evidence of malignancy. ? ASSESSMENT: ? BI-RADS BI-RADS 1 - Negative ? RECOMMENDATION: ?? Routine annual mammography screening. ? 1 year F/U ? This examination should not preclude the clinical evaluation of a ?? suspicious palpable abnormality. ? This patient's information was entered into a reminder system with a ?? target due date for their next mammogram. ? Dictated By: ?Donna Jenkins MD ? Signed By: ?<Electronically signed by Donna Jenkins MD in OV> ? 02/11/24 0939 ? DD/ 1545 ? TD/TT: ? Slot Machine Floor Person: ? Procedure Note Dionisio Gaxiola - 02/11/2024 [facility] [address] [place], [place] [address] Mammography Report Signed Patient: Jacob Hedrick#: [id number] : 1980Acct:[id number] Age/Sex: 43 / FADM Date: 01/18/24 Loc: HO.MAMMO Attending Dr: Varsha Sherman Ordering Physician: Varsha ShermanResults: 1Negative Date of Service: 01/18/24Follow Up: 1 Year From Orig inal Mammogram Procedure(s): MM tomosynthesis screening BI Accession Number(s): [id number] cc: Varsha Sherman EXAMINATION: MM SCREENING DIGITAL BREAST TOMOSYNTHESIS, BILATERAL CLINICAL INFORMATION: Screening. Asymptomatic. COMPARISON: Mammography: This study is compared with prior exams dating back to 2020. TECHNIQUE: Digital breast tomosynthesis is performed in both the craniocaudal and mediolateral oblique views along with computer-aided detection (CAD). Synthesized 2D images are generated from the tomosynthesis. FINDINGS: There are scattered areas of fibroglandular density (ACR BI-RADS breast composition Category b). There are no significant masses, abnormal calcifications, or other abnormalities. MM/MM tomosynthesis screening BI IMPRESSION: No mammographic evidence of malignancy. ASSESSMENT: BI-RADS BI-RADS 1 - Negative RECOMMENDATION: Routine annual mammography screening. 1 year F/U This examination should not preclude the clinical evaluation of a suspicious palpable abnormality. This patient's information was entered into a reminder system with a target due date for their next mammogram. Dictated By: Donna Jenkins MD Signed By: <Electronically signed by Donna Jenkins MD in OV> 02/11/24 0939 DD/ 1545 TD/TT: Slot Machine Floor Person: Varsha Sherman NP IMG BI PROCEDURES Edited Result - Final * Hepatitis C Antibody with Reflex to HCV, RNA, Quantitative, Real-Time PCR (10/04/2023 4:21 PM EST) Hepatitis C Antibody Nonreactive Nonreactive [facility] Comment:Antibodies to HCV no t detected; does not exclude early acuteHCV infection. Blood Venous blood specimen / Unknown 10/04/2023 4:21 PM EST 10/04/2023 5:24 PM EST Janeth Wood MD LAB BLOOD ORDERABLES Final Result [facility] [address] [place] [address] [phone] * HIV-1/2 Antigen and Antibodies, Fourth Generation, with Reflexes (10/04/2023 4:21 PM EST) HIV AB/AG Nonreactive Nonreactive [facility] Comment:HIV-1 p24 Ag and/or HIV-1/HIV-2 Ab not detected.A test result that is nonreactive does not exclude thepossibility of exposure to or infection with HIV-1 and/orHIV-2. Nonreactive results in this assay for individualswith prior exposure to HIV-1 and/or HIV-2 may be due toantigen and antibody levels that are below the limit ofdetection of this assay.The [employer] HIV Ag/Ab Combo assay result andsupplemental assay results should be interpreted inconjunction with the patient's clinical presentation,history and other laboratory results. If the results areinconsistent with clinical evidence, additional testing issuggested to confirm the result. Blood Venous blood specimen / Unknown 10/04/2023 4:21 PM EST 10/04/2023 5:24 PM EST us Janeth Wood MD LAB BLOOD ORDERABLES Final Result [facility] [address] [place] [phone] * THINPREP TIS PAP AND HPV mRNA E6/E7, CT/NG, TRICH (03/08/2022 4:13 PM EDT) Chlamydia trachomatis RNA, TMA, Urogenital NOT DETECTED NOT DETECTED [facility] Clinical Information: None given [facility] COMMENT SEE COMMENT [facility] Comment: The analytical performance characteristics of this assay, when used to test SurePath(TM) specimens have been determined by [employer]. The modifications have not been cleared or approved by the FDA. This assay has been validated pursuant to the CLIA regulations and is used for clinical purposes. ?? For additional information, please refer to https://education.[employer].Conelum/faq/CLX296 (This link is being provided for information/ educational purposes only.) ?? COMMENT SEE COMMENT [facility] Comment: EXPLANATORY NOTE: ? The Pap is a screening test for cervical cancer. It is ?? not a diagnostic test and is subject to false negative ?? and false positive results. It is most reliable when a ?? satisfactory sample, regularly obtained, is submitted ?? with relevant clinical findings and history, and when ?? the Pap result is evaluated along with historic and ?? current clinical information. ?? COMMENT: SEE COMMENT [facility] Comment: This Pap test has been evaluated with computer assisted technology. Microscopic features suggestive of lubricant. Lubricant jellies may interfere with slide preparation; their use is not recommended. Frame Maker: SEE COMMENT [facility] Comment: MSM, CT(ASCP) CT screening location: [address] ??[address] HPV nRNA E6/E7 Not Detected Not Detected [facility] Comment: Methodology: Animal Stunner-Mediated Amplification This assay detects E6/E7 viral messenger RNA (mRNA) from 14 high-risk HPV types (16,18,31,33,35,39,45,51,52,56,58,59,66,68). ? The analytical performance characteristics of this assay have been determined by [employer]. The modifications have not been cleared or approved by the FDA. This assay has been validated pursuant to the CLIA regulations and is used for clinical purposes. ?? For additional information, please refer to http://[employer]/faq/JTN708e6 (This link if provided for information/ educational purposes only.) Interpretation/Res ult: SEE COMMENT [facility] Comment: Negative for intraepithelial lesion or malignancy. Atrophic pattern; predominantly parabasal cells LMP: NONE GIVEN [facility] Neisseria gonorrhoeae RNA, TMA, Urogenital NOT DETECTED NOT DETECTED [facility] Prev. BX: NONE GIVEN [facility] Prev. PAP: NONE GIVEN [facility] SOURCE: None given [facility] Statement Of Adequacy: SATISFACTORY FOR EVALUATION [facility] Trichomonas vaginalis, QL, TMA, PAP Vial NOT DETECTED NOT DETECTED [facility] Comment: The analytical performance characteristics of this assay have been determined by [employer]. The modifications have not been cleared or approved by the FDA. This assay has been validated pursuant to the CLIA regulations and is used for clinical purposes. ?? For additional information, please refer to [email or web address]/ faq/Trichomonastma (This link is being provided for information/ educational purposes only.) ?? 03/08/2022 4:13 PM EDT Clarisa SAMPSON LAB PATHOLOGY ORDERABLES Final Result [facility] [address] [place] [address], from Last 3 Months or Most Recently Relevant to Health Maintenance Insurance [address] [place] [facility] * Guarantor: Niurka Hedrick Account Type Relation to Patient Date of Phone Billing Address Personal/Family Self [place] * Guarantor: Niurka Hedrick Account Type Relation to Patient Date of Phone Billing Address Personal/Family Self [place] Care Teams Unix Consultant Relationship Specialty Start Date End Date Varsha Sherman NP [address] [place] [phone] PCP - General Family Medicine 12/21/23
[2024-12-20 11:45] LABS: MANUAL DIFF FLAG NO
[2024-12-20 12:06] LABS: Basophils Percent Auto 0.4 % (0-2); Eosinophils Absolute Auto 0.1 X10*3/uL (0.0-0.4); Eosinophils Percent Auto 2.2 % (0-4); Hematocrit 30.8 % (37.0-47.0); Hemoglobin 9.5 g/dl (12.0-16.0); Imm Gran Abs Auto 0.01 X10*3/uL (0.00-0.03); Imm Gran Pct Auto 0.2 % (0.0-0.4); Lymphocytes Absolute Auto 1.7 X10*3/uL (1.2-4.9); Mean Corpuscular HGB Conc 30.8 g/dl (31.0-35.0); Mean Corpuscular Hemoglobin 22.2 pg (27.0-33.0); Mean Corpuscular Volume 72.1 fL (80.0-98.0); Mean Platelet Volume 10.1 fL (9.4-12.3); Monocytes Absolute Auto 0.3 X10*3/uL (0.1-1.2); Monocytes Percent Auto 6.5 % (2-11); Neutrophils Absolute Auto 2.9 x10*3/uL (2.0-8.3); Neutrophils Percent Auto 56.7 % (45-73); Platelet Count 310 X10*3/uL (160-400); Red Blood Count 4.27 X10*6/uL (4.20-5.50); Red Cell Distribution Width 16.9 % (11.0-16.0); White Blood Count 5.1 X10*3/uL (4.8-10.8)
[2024-12-20 12:35] LABS: Anion Gap 10 (12-20); Blood Urea Nitrogen 9 mg/dL (9-16); Calcium 8.8 mg/dL (8.4-10.2); Carbon Dioxide 23 mmol/L (22-29); Chloride 112 mmol/L (96-108); Estimated Glomerular Filt Rate > 60; Glucose Random 68 mg/dL (60-115); Iron 14 mcg/dL (30-160); Percent Iron Saturation 4 % (15-50); Potassium 3.8 mmol/L (3.3-5.1); Sodium 141 mmol/L (135-145); Total Iron Binding Capacity 400 mcg/dL (228-428); Unsaturated Iron Binding 386 ug/dL
== END 2024-12-20 09:58 | disposition home or self-care (01) ==
LOC: HO.HHCL 09:57
PROVIDERS: Visit Provider Nurse Practitioner
DX: D50.9 Iron deficiency anemia, unspecified (principal); N92.0 Excessive and frequent menstruation with regular cycle
CPT/HCPCS: 36415; 80048; 83540; 85025

== ENCOUNTER → 2025-01-01 16:02 | Outpatient (REF) | payer OTHER, SELFPAY ==
--- NOTE | ~2025-01-01 | US_ITS ---
EXAMINATION: US PELVIS CLINICAL INFORMATION: Menorrhagia COMPARISON: Ultrasound pelvis 04/04/2022 TECHNIQUE: Ultrasound of the pelvis is performed using both transabdominal and transvaginal transducers along with Doppler. Transvaginal imaging is performed due to inadequate visualization transabdominally. FINDINGS: Uterus: The uterus is anteverted , anteflexed and measures 8.7 x 3.0 x 5.5 cm. The double wall endometrial thickness 1.5 cm on transvaginal ultrasound. The uterus is smooth in contour and has normal myometrial echogenicity. No visible fibroid. Adnexa: Both ovaries are visualized. There is normal color flow to the adnexa. There is no ovarian torsion. There is no pelvic ascites or fluid collection. Right ovary measures 2.7 x 1.9 x 2.1 cm. Volume 5.6 mL. Previously right ovary measured 2.9 x 1.4 x 1.3 cm. Left ovary measures 1.7 x 1.5 x 1.1 cm. Volume 1.5 mL . Previously left ovary measured 2.6 x 1.4 x 1.8 cm. There is no free fluid in the cul-de-sac. US/US pelvic and transvaginal IMPRESSION: Unremarkable uterus and ovaries. Thickened endometrium measuring 1.5 cm could be normal considering patient is actively having menstrual cycles. Electronically signed by: Yemi Welch MD 01/02/2025 07:23 AM MASHA
--- OUTSIDE RECORDS SUMMARY | 2025-01-01 16:38 | XMS_ITS | Encounter Summary ---
Author Organization [employer] [facility] Address [address] [place] [address] [address] [place] [address] Care Team Providers Care Drawer Waxer Name Role Phone Varsha Sherman NP Primary Care Provider [phone] Reason for Referral * Imaging (Routine) - Closed Specialty Diagnoses / Procedures Referred By Sahara t Referred To Contact Radiology Diagnoses Encounter for screening mammogram for malignant neoplasm of breast Procedures BI Mammogram Screening Tomosynthesis Bilateral Varsha Sherman NP [address] [place], [place] Phone: tel: fax: [address] Phone: tel: fax: Referral ID Status Reason Start Date Expiration Date Visits Re quested Visits Authorized [id number] Closed 12/20/2024 12/20/2025 1 1 * Imaging (Routine) - Authorized Specialty Diagnoses / Procedures Referred By Contac t Referred To Contact Radiology Diagnoses Microcytic anemia Menorrhagia with regular cycle Procedures US Pelvis Transvaginal Varsha Sherman NP [address] [place] [address] Phone: tel: fax: [address] Phone: tel: fax: Referral ID Status Reason Start Date Expiration Date V isits Requested Visits Authorized [id number] Authorized 12/20/2024 12/20/2025 1 1 * Imaging (Routine) - Authorized Specialty Diagnoses / Procedures Referred By Sahara case Referred To Contact Radiology Diagnoses Microcytic anemia Menorrhagia with regular cycle Procedures Us Pelvis complete Varsha Sherman NP [address] [place] [address] Phone: tel: fax: [address] Phone: tel: fax: Referral ID Status Reason Start Date Expiration Date V isits Requested Visits Authorized [id number] Authorized 12/20/2024 12/20/2025 1 1 Reason for Visit * Reason Comments Follow-up Encounter Details Date Type Department Care Team (Late st Contact Info) Description 12/20/2024 9:00 AM EST Office Visit [facility] [address] [place] [address] Varsha Sherman NP [address] [place] [address] Microcytic anemia (Primary Dx); Menorrhagia with regular cycle; Encounter for immunization; Encounter for screening mammogram for malignant neoplasm of breast; Overweight (BMI 25.0-29.9); Dietary counseling; Exercise counseling Social History Tobacco Use Types Packs/Day Years [...] AM EDT documented as of this encounter Last Filed Vital Signs Vital Sign Reading [...] Mass Index 29.56 12/20/2024 9:09 AM EST documented in this encounter Progress Notes * Varsha Sherman NP - 12/20/2024 9:00 AM EST Subjective: Niurka Skinner 44 y.o. female presents for routine follow-up. Denies recent illness, injury, or hospitalization. HPI Niurka states she is doing well overall and has no acute complaints today. Interim updates: Anemia: has not been taking iron supplement for the past month because she was not able to get refills. Reports stomach upset when iron is taken on empty stomach so she takes it with a few crackers. Denies other GI disturbances or stool discoloration. AUB: Was not able to complete transvaginal and pelvic US previously ordered to rule out structural causes of heavy menstrual bleeding. Says her menses lasts 5 days and she bleeds heavily for the first 4 days. Uses 4-5 pads per day, changing every 1-2 hrs depending on how bothersome she gets. Periods are regular. States she was seen at [facility] for pap one year ago and informed she had polyps but there has not been any interventions. Review of Systems Constitutional: Negative. Negative for chills and fever. Respiratory: Negative for chest tightness and shortness of breath. Cardiovascular: Negative for chest pain. Gastrointestinal: Negative for abdominal pain, constipation, diarrhea and nausea. Genitourinary: Positive for menstrual problem. Negative for dysuria. Musculoskeletal: Negative for arthralgias, back pain, myalgias and neck pain. Skin: Negative. Negative for rash and wound. Neurological: Negative for weakness, light-headedness and headaches. Psychiatric/Behavioral: Negative for behavioral problems, confusion, decreased concentration and suicidal ideas. Objective: Visit Vitals BP 111/70 (BP Location: Left arm, Patient Position: Sitting, BP Cuff Size: Adult long) Pulse 82 Temp 98.6 ??F (37 ??C) (Oral) Resp 22 Patient Active Problem List Diagnosis Abnormal uterine bleeding (AUB) Vitamin D deficiency Encounter for screening mammogram for malignant neoplasm of breast Anemia Fatigue Routine screening for STI (sexually transmitted infection) Rosacea STI (sexually transmitted infection) Mixed stress and urge urinary incontinence Current Outpatient Medications on File Prior to Visit Medication Sig Dispense Refill cholecalciferol (Vitamin D-3) 25 MCG tablet TAKE 1 TABLET BY MOUTH EVERY MORNING 30 tablet 3 metroNIDAZOLE (Metrogel) 1 % gel APPLY TO THE AFFECTED AREA(S) TWICE DAILY 60 g 1 Sod Fluoride-Potassium Nitrate 1.1-5 % paste [place] teeth for 2 minutes, morning and night. Spit, donot rinse. Do not eat or drink anything for 30 minutes following brushing. 112 g 3 tranexamic acid (Lysteda) 650 MG tablet tablet Take 1,300 mg by mouth 3 times daily. For 5 days during menses [DISCONTINUED] Ascorbic Acid (vitamin C) 250 MG tablet Take 1 tablet in the morning every other daywith ferrous gluconate. 30 tablet 2 [DISCONTINUED] ferrous gluconate (Fergon) 324 (38 Fe) MG tablet Take 1 tablet every other day in the morning with vitamin C (Patient not taking: Reported on 07/12/2024) 30 tablet 2 No current facility-administered medications on file prior to visit. Physical Exam Vitals reviewed. Constitutional: General: She is not in acute distress. Appearance: Normal appearance. She is not ill-appearing. HENT: Head: Normocephalic and atraumatic. Right Ear: External ear normal. Left Ear: External ear normal. Nose: Nose normal. Eyes: General: No scleral icterus. Extraocular Movements: Extraocular movements intact. Cardiovascular: Rate and Rhythm: Normal rate and regular rhythm. Pulses: Normal pulses. Heart sounds: Normal heart sounds. Pulmonary: Effort: Pulmonary effort is normal. No respiratory distress. Musculoskeletal: General: Normal range of motion. Cervical back: Normal range of motion. Skin: General: Skin is warm. Findings: Erythema (bilateral cheeks) present. Neurological: General: No focal deficit present. Mental Status: She is alert and oriented to person, place, and time. Gait: Gait normal. Psychiatric: Mood and Affect: Mood normal. Behavior: Behavior normal. Assessment/Plan Diagnoses and all orders for this visit: Microcytic anemia Comments: -Mentzer score 17.9 confirming increased likelihood of anemia being r/t to iron deficiency -strongly suspect menorrhagia as probable cause, however malabsorption of iron cannot be excluded. -repeat labs ordered today with iron panel -refill for ion supplement sent to pharmacy -consider referral to GI for further work up pending negative imaging Orders: - CBC auto differential; Future - Iron And Total Iron Binding Capacity; Future - Us Pelvis complete; Future - US Pelvis Transvaginal; Future - ferrous gluconate (Fergon) 324 (38 Fe) MG tablet; Take 1 tablet every other day in the morning with vitamin C - Ascorbic Acid (vitamin C) 250 MG tablet; Take 1 tablet in the morning every other day with ferrous gluconate. Menorrhagia with regular cycle Comments: -Pelvic and Transvaginal US order placed again. -discussed use of ibuprofen to help regulate volume of bloos loss during menses however, she declined reporting that although it helps, she has rebound uterine bleeding for 2 weeks several days aftermenses ends -trial tranexamic acid 1300 mg TID during menses Orders: - Us Pelvis complete; Future - US Pelvis Transvaginal; Future - Basic Metabolic Panel; Future Encounter for immunization - FLU VACCINE TRIVALENT (Fluarix) 6 mo + Encounter for screening mammogram for malignant neoplasm of breast - BI Mammogram Screening Tomosynthesis Bilateral; Future Overweight (BMI 25.0-29.9) Comments: Dietary Recommendations: Fruits, vegetables, whole grains, protein foods, and fat-free or low-fat dairy products are healthychoices. Eat different types of protein foods in your diet. This can include seafood, lean meats, poultry, beans, peas, lentils, nuts, seeds, soy products, and eggs. Limit foods and beverages higher in added sugars, saturated fat, and sodium. Exercise Recommendations: At least 150 minutes of moderate-intensity physical activity per week, or an equivalent combinationof moderate- and vigorous-intensity activity Dietary counseling Exercise counseling Follow-up 4 months or sooner as needed Bulgarian Translation: Provided by [facility] staff member Elizabeth documented in this encounter Plan of Treatment Upcoming Encounters Date Type Department Care Team (Late st Contact Info) Description 01/20/2025 8:00 AM EST Office Visit [facility] [address] [place] [address] Adi Bello, DMD [address] [place] [address] Scheduled Orders Name Type Priority Associated Diagnoses Orde r Schedule Us Pelvis complete Imaging Routine Microcytic anemia Menorrhagia with regular cycle Expected: 12/20/2024, Expires: 12/20/2025 US Pelvis Transvaginal Imaging Routine Microcytic anemia Menorrhagia with regular cycle Expected: 12/20/2024, Expires: 12/20/2025 BI Mammogram Screening Tomosynthesis Bilateral Imaging Routine Encounter for screening mammogram for malignant neoplasm of breast Expected: 12/20/2024, Expires: 02/17/2026 documented as of this encounter Procedures Procedure Name Priority Date/Time Associated Diagnosis Comments CBC WITH AUTO DIFFERENTIAL Routine 12/20/2024 10:00 AM EST Microcytic anemia IRON AND TOTAL IRON BINDING CAPACITY Routine 12/20/2024 10:00 AM EST Microcytic anemia BASIC METABOLIC PANEL Routine 12/20/2024 10:00 AM EST Menorrhagia with regular cycle documented in this encounter Results * (ABNORMAL) Basic Metabolic Panel (12/20/2024 10:00 AM EST) Sodium 141 135 - 145 mmol/L [facility] Potassium 3.8 3.3 - 5.1 mmol/L [facility] Chloride 112(H) 96 - 108 mmol/L [facility] Carbon Dioxide 23 22 - 29 mmol/L [facility] Anion Gap 10(L) 12 - 20 [facility] Urea Nitrogen (BUN) 9 9 - 16 mg/dL [facility] Creatinine, Serum 0.62 0.5 - 1.4 mg/dL [facility] Estimated Glomerular Filt Rate >60 [facility] Comment:Chronic Kidney Disea se: Estimated GFR < 60 mL/min/1.26l8Brguad Kidney Disease: Estimated GFR < 15 mL/min/1.73m2 Glucose 68 60 - 115 mg/dL [facility] Calcium 8.8 8.4 - 10.2 mg/dL [facility] Blood Venous blood specimen / Unknown 12/20/2024 10:00 AM EST 12/20/2024 11:38 AM EST us Varsha Sherman NP LAB BLOOD ORDERABLES Final Resu lt [facility] [address] [place] [address] [phone] * (ABNORMAL) Iron And Total Iron Binding Capacity (12/20/2024 10:00 AM EST) Iron 14(L) 30 - 160 mcg/dL [facility] Total Iron Binding Capacity 400 228 - 428 mcg/dL [facility] Percent Iron Saturation 4(L) 15 - 50 % [facility] Unsaturated Iron Binding 386 ug/dL [facility] Blood Venous blood specimen / Unknown 12/20/2024 10:00 AM EST 12/20/2024 11:38 AM EST Varsha Sherman MAILROOM SUPERVISOR LAB BLOOD ORDERABLES Final Resu lt [facility] [address] [place] [phone] * (ABNORMAL) CBC auto differential (12/20/2024 10:00 AM EST) Pathologist [facility] White Blood Count 5.1 4.8 - 10.8 X10*3/uL [facility] Red Blood Count 4.27 4.20 - 5.50 X10*6/uL [facility] Hemoglobin 9.5(L) 12.0 - 16.0 g/dl [facility] Hematocrit 30.8(L) 37.0 - 47.0 % [facility] Mean Corpuscular Volume 72.1(L) 80.0 - 98.0 fL [facility] Mean Corpuscular Hemoglobin 22.2(L) 27.0 - 33.0 pg [facility] Mean Corpuscular HGB Conc 30.8(L) 31.0 - 35.0 g/dl [facility] Red Cell Distribution Width 16.9(H) 11.0 - 16.0 % [facility] Platelet Count 310 160 - 400 X10*3/uL [facility] Mean Platelet Volume 10.1 9.4 - 12.3 fL [facility] Neutrophils Percent Auto 56.7 45 - 73 % [facility] Imm Gran Pct Auto 0.2 0.0 - 0.4 % [facility] Lymphocytes Percent Auto 34.0 20 - 40 % [facility] Monocytes Percent Auto 6.5 2 - 11 % [facility] Eosinophils Percent Auto 2.2 0 - 4 % [facility] Basophils Percent Auto 0.4 0 - 2 % [facility] NRBC Pct Auto 0.0 0.0 - 0.2 /100WBC [facility] Neutrophils Absolute Auto 2.9 2.0 - 8.3 x10*3/uL [facility] Imm Gran Abs Auto 0.01 0.00 - 0.03 X10*3/uL [facility] Lymphocytes Absolute Auto 1.7 1.2 - 4.9 X10*3/uL [facility] Monocytes Absolute Auto 0.3 0.1 - 1.2 X10*3/uL [facility] Eosinophils Absolute Auto 0.1 0.0 - 0.4 X10*3/uL [facility] Basophils Absolute Auto 0.0 0.0 - 0.2 X10*3/uL [facility] NRBC Abs Auto 0.000 0.0 - 0.012 X10*3/uL [facility] Blood Venous blood specimen / Unknown 12/20/2024 10:00 AM EST 12/20/2024 11:38 AM EST Varsha Sherman NP LAB BLOOD ORDERABLES Final Resu lt [facility] [address] [place] [address] [phone] documented in this encounter Visit Diagnoses Diagnosis Microcytic anemia- Primary Unspecified iron deficiency anemia Menorrhagia with regular cycle Encounter for immunization Encounter for screening mammogram for malignant neoplasm of breast Overweight (BMI 25.0-29.9) Overweight Dietary counseling Dietary surveillance and counseling Exercise counseling documented in this encounter Additional Health Concerns Assessment Noted Time PHQ-9 Depression Total Score: 0 06/19/20 24 3:44 PM EDT documented as of this encounter Care Teams Drawer Waxer Relationship Specialty Start Date End Date Varsha Sherman NP [address] [place] [address] PCP - General Family Medicine 12/21/23 documented as of this encounter
--- OUTSIDE RECORDS SUMMARY | 2025-01-01 16:38 | XMS_ITS | Encounter Summary ---
Author Organization [employer] Address [address] [facility] 7 [place] [address] Care Team Providers Care Pusher Runner Name Role Phone Varsha Sherman NP Primary Care Provider [phone] Reason for Visit * Reason Comments Med Refill Encounter Details Date Type Department Care Team ([facility] st Contact Info) Description 12/20/2024 Refill [facility] MEDICINE [address] [place], [place] [phone] Varsha Sherman NP [address] [place] [address] Menorrhagia with regular cycle Social History Tobacco [...] encounter Miscellaneous Notes * Telephone Encounter - Mary Grullon RN - 12/23/2024 10:18 AM EST TC placed to pt via [employer] - [employer] research methods instructor (SongAfter ID#[id number]) to advise of PCP message, Please inform patient of lab results which confirm persistent anemia due to iron deficiency. Continue supplementation as discussed during our visit today. BMP reveals normal kidney function and electrolyte levels within acceptable range. Thanks Pt verbalized understanding and denies any questions or concerns at thistime. documented in this encounter Plan of Treatment Upcoming Encounters Date Type Department Care Team (Late st Contact Info) Description 01/20/2025 8:00 AM EST Office Visit [facility] ADULT DENTAL [address] [place] [address] Adi Bello, DMD [address] [place] [address] documented as of this encounter Visit Diagnoses Diagnosis Menorrhagia with regular cycle documented in this encounter Additional Health Concerns Assessment Noted Time PHQ-9 Depression Total Score: 0 06/19/20 24 3:44 PM EDT documented as of this encounter Care Teams Pusher Runner Relationship Specialty Start Date End Date Varsha Sherman NP [address] [place] [address] PCP - General Family Medicine 12/21/23 documented as of this encounter
--- OUTSIDE RECORDS SUMMARY | 2025-01-01 16:38 | XMS_ITS | Clinical Summary ---
Author Organization [employer] Address [address] [place] [address] 7 [place] [address] Care Team Providers Care Supervisor Cloth Winding Name Role Phone Varsha Sherman NP Primary Care Provider [phone] Allergies Active Allergy Reactions Criticality Noted Date Comments Lactose Diarrhea 10/04/2023 Medications Sod Fluoride-Potass ium Nitrate 1.1-5 % pasteIndication s:Dental caries [place] teeth for 2 minutes, morning [...] tranexamic acid (Lysteda) 650 MG tablet tabletIndicatio ns:Heavy Menstrual Bleeding Take 1,300 mg by mouth 3 times daily. For 5 days during menses Active ferrous gluconate (Fergon) 324 (38 Fe) [...] order (will not trigger notification to Pharmacy)) tranexamic acid (Lysteda) 650 MG tablet tabletIndicatio ns:Menorrhagia with regular cycle Take 3 tabs by mouth TID for 5 days during menses 15 tablet 3 12/20/19 25 025 Discontinued(Ot her) Active Problems Problem Noted Date Diagnosed Date [...] Procedure(s): US pelvic and transvaginal Accession Number(s): [id number] cc: Clarisa Kern NP~ EXAMINATION: US PELVIS CLINICAL INFORMATION: Abnormal vaginal [...] Description 12/20/2024 9:00 AM EST Office Visit [facility] MEDICINE [address] [place] [address] Varsha Sherman NP Microcytic anemia (Primary Dx); Menorrhagia with regular cycle; Encounter for immunization; Encounter for screening mammogram for malignant neoplasm of breast; Overweight (BMI 25.0-29.9); Dietary counseling; Exercise counseling 12/20/[address] [address] Varsha Sherman NP Menorrhagia with regular cycle 12/20/2024 Travel 12/13/[address] [address] Jeff Paulino [place] chartprep 10/23/2024 Orders Only [facility] External Provider, [facility] 10/10/[address] [facility] MED[facility] [address] [place] [address] Varsha Sherman NP Other fatigue 10/08/[address] [address] Varsha Sherman NP November recall from Last 3 Months Immunizations Name Administration [...] 12/20/2024 9:09 AM EST Plan of Treatment Upcoming Encounters Date Type Department Care Team (Late st Contact Info) Description 01/20/2025 8:00 AM EST Office Visit [facility] ADULT DENTAL [address] [place] [address] Adi Blelo, DMD [address] [place] [address] Health Maintenance Due Date Last Done Comments [...] 5 Years) and At-Risk Patients (6 to 49) Years) Aged Out No longer eligible based on patient's age to complete this topic RSV under 20 months Aged Out No longe r eligible based on patient's age to complete this topic Rotavirus Vaccines Aged Out No longer eligible based on patient's age to complete this topic Procedures Procedure Name Priority Date/Time Associated Diagnosis Comments BASIC METABOLIC PANEL Routine 12/20/2024 10:00 AM EST Menorrhagia with regular cycle IRON AND TOTAL IRON BINDING CAPACITY Routine 12/20/2024 10:00 AM EST Microcytic anemia CBC WITH AUTO DIFFERENTIAL Routine 12/20/2024 10:00 AM EST Microcytic anemia CT HEAD WO CONTRAST Routine 10/23/2024 7 [...] Recently Relevant to Health Maintenance Results * (ABNORMAL) CBC auto differential (12/20/2024 10:00 AM EST) Only the most recent of2 resultswithin the time period is included. White Blood Count 5.1 4.8 - 10.8 X10*3/uL [facility] Red Blood Count 4.27 4.20 - 5.50 X10*6/uL [facility] Hemoglobin 9.5(L) 12.0 - 16.0 g/dl [facility] Hematocrit 30.8(L) 37.0 - 47.0 % [facility] Mean Corpuscular Volume 72.1(L) 80.0 - 98.0 fL [facility] Mean Corpuscular Hemoglobin 22.2(L) 27.0 - 33.0 pg [facility] Mean Corpuscular HGB Conc 30.8(L) 31.0 - 35.0 g/dl [facility] Red Cell Distribution Width 16.9(H) 11.0 - 16.0 % [facility] Platelet Count 310 160 - 400 X10*3/uL [facility] Mean Platelet Volume 10.1 9.4 - 12.3 fL [facility] Neutrophils Percent Auto 56.7 45 - 73 % [facility] Imm Gran Pct Auto 0.2 0.0 - 0.4 % [facility] Lymphocytes Percent Auto 34.0 20 - 40 % [facility] Monocytes Percent Auto 6.5 2 - 11 % [facility] Eosinophils Percent Auto 2.2 0 - 4 % [facility] Basophils Percent Auto 0.4 0 - 2 % [facility] NRBC Pct Auto 0.0 0.0 - 0.2 /100WBC [facility] Neutrophils Absolute Auto 2.9 2.0 - 8.3 x10*3/uL [facility] Imm Gran Abs Auto 0.01 0.00 - 0.03 X10*3/uL [facility] Lymphocytes Absolute Auto 1.7 1.2 - 4.9 X10*3/uL [facility] Monocytes Absolute Auto 0.3 0.1 - 1.2 X10*3/uL [facility] Eosinophils Absolute Auto 0.1 0.0 - 0.4 X10*3/uL [facility] Basophils Absolute Auto 0.0 0.0 - 0.2 X10*3/uL [facility] NRBC Abs Auto 0.000 0.0 - 0.012 X10*3/uL [facility] Blood Venous blood specimen / Unknown 12/20/2024 10:00 AM EST 12/20/2024 11:38 AM EST [facility] LAB BLOOD ORDERABLES Final Resu lt Performing Organization Address [facility]/ZIP Co de Phone Number [facility] [address] [place] [phone] * (ABNORMAL) Iron And Total Iron Binding Capacity (12/20/2024 10:00 AM EST) Iron 14(L) 30 - 160 mcg/dL [facility] Total Iron Binding Capacity 400 228 - 428 mcg/dL [facility] Percent Iron Saturation 4(L) 15 - 50 % [facility] Unsaturated Iron Binding 386 ug/dL [facility] Blood Venous blood specimen / Unknown 12/20/2024 10:00 AM EST 12/20/2024 11:38 AM EST [facility] LAB BLOOD ORDERABLES Final Resu lt Performing Organization Address [facility] Co de Phone Number [facility] [address] [place] [phone] * (ABNORMAL) Basic Metabolic Panel (12/20/2024 10:00 AM EST) Only the most recent of2 resultswithin the time period is included. Sodium 141 135 - 145 mmol/L [facility] Potassium 3.8 3.3 - 5.1 mmol/L [facility] Chloride 112(H) 96 - 108 mmol/L [facility] Carbon Dioxide 23 22 - 29 mmol/L [facility] Anion Gap 10(L) 12 - 20 [facility] Urea Nitrogen (BUN) 9 9 - 16 mg/dL [facility] Creatinine, Serum 0.62 0.5 - 1.4 mg/dL [facility] Estimated Glomerular Filt Rate >60 [facility] Comment:Chronic Kidney Disea se: Estimated GFR < 60 mL/min/[id number] Kidney Disease: Estimated GFR < 15 mL/min/1.73m2 Glucose 68 60 - 115 mg/dL [facility] Calcium 8.8 8.4 - 10.2 mg/dL [facility] Blood Venous blood specimen / Unknown 12/20/2024 10:00 AM EST 12/20/2024 11:38 AM EST us [address] [facility] LAB BLOOD ORDERABLES Final Resu lt Performing Organization Address [facility]/State/ZIP Co de Phone Number [facility] [address] [place] [phone] * CT Head w/o Contrast (10/23/2024 7:25 PM EST) Anatomical Region Laterality Modality Head, Neck Computed Tomogra phy 10/23/2024 7:25 PM EST Narrative 10/23/2024 9:37 PM EST ? [facility] ?[address] ?[place] [address] ? CT Scan Report ? Signed ? Patient: Niurka Hedrick ?MR#: [id number] ?? [id number] ? : 1980 ?Acct:[id number] ? Age/Sex: 44 / F ?ADM Date: 10/23/24 ? Loc: HO.ED ? Attending Dr: ? Ordering Physician: Mónica Colunga ?? Date of Service: 10/23/24 ?? Procedure(s): CT head/brain wo IV con ?? Accession Number(s): [id number] ? cc: Varsha Sherman; Mónica Colunga ? EXAMINATION: ?? CT HEAD WITHOUT CONTRAST [...] ?? infarction. ? Electronically signed by: ??Jack Conrad DO ??10/23/2024 09:33 PM EST RP ? Dictated By: ?Nikos Conrad DO ? Signed By: ?<Electronically signed by Nikos Conrad, in OV> ? 10/23/24 2133 ? DD/ 24 ? TD/TT: 10/23/241924 ? Adjunct Nursing Faculty: JL ? Procedure Note Minor, Image - 10/23/[address] [place] [address] [address] Scan Report Signed Patient: Niurka Hedrick#: [id number] : 1980Acct:[id number] Age/Sex: 44 / FADM Date: 10/23/24 Loc: HO.ED Attending Dr: Ordering Physician: Mónica Colunga Date of Service: 10/23/24 Procedure(s): CT head/brain wo IV con Accession Number(s): [id number] cc: Varsha Sherman; Mónica Colunga EXAMINATION: CT [...] in OV> 10/23/242132 DD/ 24 TD/TT: 10/23/241924 Adjunct Nursing Faculty: NAN [facility] External Provider IMG CT PROCEDURES Edited Result - Final * SARS-CoV-2 RNA, Influenza A/B, and RSV RNA, Ql NAAT (10/23/2024 7:10 PM EST) Influenza A PCR NEGATIVE Negative [facility] Influenza B PCR NEGATIVE Negative [facility] Resp Syncy Virus RNA Qual PCR NEGATIVE Negative [facility] SARS COV2 PCR NEGATIVE Negative [facility] Comment:All test results mus t [...] use by authorized laboratories.Testing performed on the [employer] GeneXpert utilizingreal-time RT-PCR.All SARS CoV2 and positive influenza A/B results arereported to [facility]. 10/23/2024 7:10 PM EST 10/23/2024 7:14 PM EST Generic External Data Provider LAB MICROBIOLOGY - GENERAL ORDERABLES Final Result Performing Organization Address [facility] de Phone Number [facility] [address] [place] [phone] * Prothrombin Time-INR (10/23/2024 7:10 PM EST) [facility] Prothrombin Time 11.7 10.9 - 12.4 SEC [facility] INTERNATIONAL NORM RATIO 1.0 0.9 - 1.1 [facility] Comment:INTERNATIONAL NORMAL IZED RATIO (INR) REFERENCE [...] ORDERAB LES Final Result Performing Organization Address [facility] de Phone Number [facility] [address] [place] [phone] * Magnesium (10/23/2024 7:10 PM EST) Magnesium 2.3 1.6 - 2.6 mg/dL [facility] 10/23/2024 7:10 PM EST 10/23/2024 7:14 PM EST Generic External Data Provider LAB BLOOD ORDERAB LES Final Result Performing Organization Address [facility] de Phone Number [facility] [address] [place] [phone] * (ABNORMAL) Hepatic Function Panel (10/23/2024 7:10 PM EST) [facility] Bilirubin, Total 0.2 0.0 - 1.0 mg/dL [facility] Bilirubin, Direct <0.2 0.0 - 0.5 mg/dL [facility] Aspartate Amino Transferase 28 5 - 31 U/L [facility] Alanine Aminotransferase 37(H) 0 - 31 U/L [facility] Total Protein 7.2 6.5 - 8.0 g/dL [facility] Albumin Level 4.0 3.5 - 5.0 g/dL [facility] Alkaline Phosphatase 91 39 - 117 U/L [facility] 10/23/2024 7:10 PM EST 10/23/2024 7:14 PM EST Generic External Data Provider LAB BLOOD ORDERAB LES Final Result Performing Organization Address City/[facility] Co de Phone Number [facility] [address] [place] [phone] * BI Mammogram Screening Tomosynthesis Bilateral (01/18/2024 3:45 PM EST) Anatomical Region Laterality Modality Breast Bilateral Mammography 01/18/2024 3:45 PM EST Narrative 02/11/2024 9:43 AM EDT ? [facility] ? [address] ?[place] [address] ? Mammography Report ? Signed ? Patient: Quillay Skinner,Niurka ?MR#: [id number] ?? [id number] ? : 1980 ?Acct:[id number] ? Age/Sex: 43 / F ?ADM Date: 01/18/24 ? Loc: HO.MAMMO ? Attending Dr: Varsha Sherman ? Ordering Physician: Varsha Sherman ?Results: 1Negative ? Date of Service: 01/18/24 ?Follow Up: 1 Year From Orig ?? inal Mammogram ? Procedure(s): MM tomosynthesis screening BI ?? Accession Number(s): [id number] ? cc: Varsha Sherman ? EXAMINATION: ?? MM SCREENING DIGITAL BREAST [...] by Donna Jenkins MD in OV> ? 02/11/2439 ? DD/ 1545 ? TD/TT: ? Adjunct Nursing Faculty: ? Procedure Note Donotamandainterpreter, Image - 02/11/2024 [facility] [address] [place], [place] [address] Mammography Report Signed Patient: Jacob Hedrick#: [id number] : 1980Acct:[id number] Age/Sex: 43 / FADM Date: 01/18/24 Loc: HO.MAMMO Attending Dr: Varsha Sherman Ordering Physician: Varsha ShermanResults: 1Negative Date of Service: 01/18/24Follow Up: 1 Year From Orig inal Mammogram Procedure(s): MM tomosynthesis screening BI Accession Number(s): [id number] cc: Varsha Sherman EXAMINATION: MM SCREENING DIGITAL [...] in OV> 02/11/24 0939 DD/ 1545 TD/TT: Adjunct Nursing Faculty: Varsha Sherman NP IMG BI PROCEDURES Edited Result - Final * Hepatitis C Antibody with Reflex to HCV, RNA, Quantitative, Real-Time PCR (10/04/2023 4:21 PM EST) Hepatitis C Antibody Nonreactive Nonreactive [facility] Comment:Antibodies to HCV no t detected; does not exclude early acuteHCV infection. Blood Venous blood specimen / Unknown 10/04/2023 4:21 PM EST 10/04/2023 5:24 PM EST Janeth Wood MD LAB BLOOD ORDERABLES Final Result [facility] [address] [place] [phone] * HIV-1/2 Antigen and Antibodies, Fourth Generation, with Reflexes (10/04/2023 4:21 PM EST) HIV AB/AG Nonreactive Nonreactive [facility] Comment:HIV-1 p24 Ag and/or HIV-1/HIV-2 Ab not detected.A test result that is nonreactive does not exclude thepossibility of exposure to or infection with HIV-1 and/orHIV-2. Nonreactive results in this assay for individualswith prior exposure to HIV-1 and/or HIV-2 may be due toantigen and antibody levels that are below the limit ofdetection of this assay.The [employer] HIV Ag/Ab Combo assay result andsupplemental assay results should be interpreted inconjunction with the patient's clinical presentation,history and other laboratory results. If the results areinconsistent with clinical evidence, additional testing issuggested to confirm the result. Blood Venous blood specimen / Unknown 10/04/2023 4:21 PM EST 10/04/2023 5:24 PM EST us Janeth Wodo MD LAB BLOOD ORDERABLES Final Result [facility] [address] [place] [phone] * THINPREP TIS PAP AND HPV mRNA E6/E7, CT/NG, TRICH (03/08/2022 4:13 PM EDT) Chlamydia trachomatis RNA, TMA, Urogenital NOT DETECTED NOT DETECTED [facility] Clinical Information: None given [facility] COMMENT SEE COMMENT [facility] Comment: The analytical performance characteristics of this assay, when used to test SurePath(TM) specimens have been determined by [employer]. The modifications have not been cleared or approved by the FDA. This assay has been validated pursuant to the CLIA regulations and is used for clinical purposes. ?? For additional information, please refer to https://education.SkyBitz/faq/RRW091 (This link is being provided for information/ [...] slide preparation; their use is not recommended. Tape Duplicator: SEE COMMENT [facility] Comment: MSM, CT(ASCP) CT screening location: [address] ??[address] HPV nRNA E6/E7 Not Detected Not Detected [facility] Comment: Methodology: Wound Care Rn-Mediated Amplification This assay detects E6/E7 viral messenger RNA (mRNA) from 14 high-risk HPV types (16,18,31,33,35,39,45,51,52,56,58,59,66,68). ? The analytical performance characteristics of this assay have been determined by [employer]. The modifications have not been cleared or approved by the FDA. This assay has been validated pursuant to the CLIA regulations and is used for clinical purposes. ?? For additional information, please refer to http://[employer] Companion.SkyBitz/faq/WEF704i7 (This link if provided for information/ educational [...] of this assay have been determined by [employer]. The modifications have not been cleared or approved by the FDA. This assay has been validated pursuant to the CLIA regulations and is used for clinical purposes. ?? For additional information, please refer to http://[employer]/ faq/Trichomonastma (This link is being provided for information/ educational purposes only.) ?? 03/08/2022 4:13 PM EDT Clarisa Kern [facility] LAB PATHOLOGY ORDERABLES Final Result [facility] [address] from Last 3 Months or Most Recently Relevant to Health Maintenance Insurance [facility] - HSN PARTIAL (MEDICAID) * Guarantor: Niurka Hedrick Account Type Relation to Patient Date of Phone Billing Address Personal/Family Self [place], [place] Care Teams Supervisor Cloth Winding Relationship Specialty Start Date End Date Varsha Sherman NP [address] [place] [address] PCP - General Family Medicine 12/21/23
--- OUTSIDE RECORDS SUMMARY | 2025-01-01 16:38 | XMS_ITS | Encounter Summary ---
Author Organization [employer] Address [address] [facility] 7 [place] [address] Care Team Providers Care Registered Nurse Fetal Name Role Phone Varsha Sherman NP Primary Care Provider [phone] Reason for Visit * Reason Onset Date Comments chartprep 12/13/2024 Encounter Details Date Type Department Care Team ([facility] st Contact Info) Description 12/13/2024 Telephone [facility] MEDICINE [address] [place] [address] Jeff Paulino [place] chartprep Social History Tobacco Use Types Packs/Day [...] Description 01/20/2025 8:00 AM EST Office Visit [facility] ADULT D[facility]AL [address] [place] [address] Adi Bello, DMD [address] [place] [address] documented as of this encounter Visit Diagnoses Not on filedocumented in this encounter Additional Health Concerns Assessment Noted Time PHQ-9 Depression Total Score: 0 06/19/20 24 3:44 PM EDT documented as of this encounter Care Teams Registered Nurse Fetal Relationship Specialty Start Date End Date Varsha Sherman NP [address] [place] [address] PCP - General Family Medicine 12/21/23 documented as of this encounter
--- OUTSIDE RECORDS SUMMARY | 2025-01-01 16:38 | XMS_ITS | Encounter Summary ---
Author Organization [employer] Address [address] [facility] 7t [place] [address] Care Team Providers Care Discount Clerk Name Role Phone Lane Varsha FUNG Primary Care Provider [phone] Encounter Details Date Type Department Care Team [...] as of this encounter Plan of Treatment Upcoming Encounters Date Type Department Care Team (Late st Contact Info) Description 01/20/2025 8:00 AM EST Office Visit [facility] ADULT DENTAL [address] [place] [address] Adi Bello, DMD [address] [place] [address] documented as of this encounter Visit Diagnoses Not on filedocumented in this encounter Additional Health Concerns Assessment Noted Time PHQ-9 Depression Total Score: 0 06/19/20 24 3:44 PM EDT documented as of this encounter Care Teams Discount Clerk Relationship Specialty Start Date End Date Varsha Sherman NP [address] [place] [address] PCP - General Family Medicine 12/21/23 documented as of this encounter
--- OUTSIDE RECORDS SUMMARY | 2025-01-01 16:38 | XMS_ITS | Encounter Summary ---
Author Organization [employer] Address [address] [place] [address] Care Team Providers Care Control Panel Assembler Name Role Phone Fátima Deluna Primary Care Provider [phone] Appram, Varsha INFORMATION SECURITY ARCHITECT Primary Care Provider [phone] Eduarda Had[place] MD Primary Care Provider [phone] Appram, Varsha FUNG Primary Care Provider [phone] Encounter Details Date Type Department Care Team (Latest Contact Info) Description 07/21/2021 Abstract [facility] CONVERSIONS Dental, Provider, DDS Social History Tobacco [...] Description 01/20/2025 8:00 AM EST Office Visit [facility] CHC ADULT DENTAL [address] [place], [place] [phone] Adi Bello, CRISTOFER [address] [place], [place] [phone] documented as of this encounter Visit Diagnoses Not on filedocumented in this encounter Care Teams Control Panel Assembler Relationship Specialty Start Date End Date Fátima Deluna FNP [address] [place] [phone] PCP - General Family Medicine 07/21/22 09/04/23 Varsha Sherman NP [address] [place] [address] PCP - General Family Medicine 09/05/23 10/29/23 Eduarda [place] MD [address] [place] [address] PCP - General Family Medicine 10/30/23 12/20/23 Varsha Sherman NP [address] [place] [address] PCP - General Family Medicine 12/21/23 documented as of this encounter
--- OUTSIDE RECORDS SUMMARY | 2025-01-01 16:38 | XMS_ITS | Encounter Summary ---
Author Organization [employer] Address [address] [place] [address] [place], [place] [address] Care Team Providers Care Mineral Economist Name Role Phone Fátima Deluna Primary Care Provider [phone] Appram, Varsha AVIATION SUPPORT EQUIPMENT REPAIRER Primary Care Provider [phone] Eduarda [place] MD Primary Care Provider [phone] Appram, Varsha FUNG Primary Care Provider [phone] Encounter Details Date Type Department Care Team (Latest Contact Info) Description 03/07/2019 Abstract [facility] CONVERSIONS Dental, Provider, DDS Social History [...] Description 01/20/2025 8:00 AM EST Office Visit [facility] CHC ADULT DENTAL [address] [place], [place] [phone] Adi Bello, CRISTOFER [address] [place], [place] [phone] documented as of this encounter Visit Diagnoses Not on filedocumented in this encounter Care Teams Mineral Economist Relationship Specialty Start Date End Date Fátima Deluna FNP [address] [place] [phone] PCP - General Family Medicine 07/21/22 09/04/23 Varsha Sherman NP [address] [place] [address] PCP - General Family Medicine 09/05/23 10/29/23 Eduarda [place] MD [address] [place] [address] PCP - General Family Medicine 10/30/23 12/20/23 Varsha Sherman NP [address] [place] [address] PCP - General Family Medicine 12/21/23 documented as of this encounter
== END | disposition home or self-care (01) ==
LOC: HO.US 16:02
PROVIDERS: PCP Nurse Practitioner; Visit Provider Nurse Practitioner
DX: N92.0 Excessive and frequent menstruation with regular cycle (principal); D50.9 Iron deficiency anemia, unspecified
CPT/HCPCS: 76830; 76856

== ENCOUNTER → 2025-01-01 16:04 | Outpatient (BNV) | CPT/HCPCS: 76830; 76856 ==

== ENCOUNTER 2025-01-23 15:00 | Outpatient (REF) | payer OTHER, SELFPAY ==
--- OUTSIDE RECORDS SUMMARY | 2025-01-23 18:20 | XMS_ITS | Encounter Summary ---
Author Organization [employer] [facility] Address [address] [place] [address] [address], [place] [address] Care Team Providers Care Government Contracts Manager Name Role Phone Fátima Deluna Primary Care Provider [phone] AppraVarsha herring NP Primary Care Provider [phone] Eduarda Hadley MD Primary Care Provider [phone] AppraVarsha herring NP Primary Care Provider [phone] Encounter Details Date Type Department Care Team (Latest Contact Info) Description 07/21/2021 Abstract [facility] CONVERSIONS Dental, Provider, DDS Social [...] Upcoming Encounters Date Type Department Care Team ( st Contact Info) Description 04/25/2025 9:00 AM EDT Office Visit [facility] MEDICINE [address] [place], [place] [phone] Varsha Sherman NP [address] [place], [place] [phone] documented as of this encounter Visit Diagnoses Not on filedocumented in this encounter Care Teams Government Contracts Manager Relationship Specialty Start Date End Date Fátima Deluna FNP [address] [place] [address] PCP - General Family Medicine 07/21/22 09/04/23 Varsha Sherman NP [address] [place] [address] PCP - General Family Medicine 09/05/23 10/29/23 Eduarda Hadley MD [address] [place] [address] PCP - General Family Medicine 10/30/23 12/20/23 Varsha Sherman NP [address] [place] [address] PCP - General Family Medicine 12/21/23 documented as of this encounter
--- OUTSIDE RECORDS SUMMARY | 2025-01-23 18:20 | XMS_ITS | Encounter Summary ---
Author Organization [employer] [facility] Address [address] [place] [address] [address] [address] Care Team Providers Care Cadd Manager Name Role Phone Fátima Deluna Primary Care Provider Appram, Varsha FUNG Primary Care Provider [phone] Eduarda Hadley MD Primary Care Provider [phone] Appram, Varsha FUNG Primary Care Provider [phone] Encounter Details Date Type Department Care Team (Latest Contact Info) Description 03/07/2019 Abstract [facility] CONVERSIONS Dental, Provider, DDS Social History Tobacco [...] Care Team (Late st Contact Info) Description 04/25/2025 9:00 AM EDT Office Visit [facility] MEDICINE [address] [place], [place] [phone] Varsha Sherman NP [address] [place], [place] [phone] documented as of this encounter Visit Diagnoses Not on filedocumented in this encounter Care Teams Cadd Manager Relationship Specialty Start Date End Date Fátima Deluna FNP [address] [place] [address] PCP - General Family Medicine 07/21/22 09/04/23 Varsha Sherman NP [address] [place] [address] PCP - General Family Medicine 09/05/23 10/29/23 Eduarda Hadley MD [address] [place] [address] PCP - General Family Medicine 10/30/23 12/20/23 Varsha Sherman NP [address] [place] [address] PCP - General Family Medicine 12/21/23 documented as of this encounter
--- OUTSIDE RECORDS SUMMARY | 2025-01-23 18:20 | XMS_ITS | Encounter Summary ---
Author Organization [employer] Address [address] [place] [address] Care Team Providers Care Car Body Inspector Name Role Phone Varsha Sherman NP Primary Care Provider [phone] Encounter Details Date Type Department Care Team ([facility] st Contact Info) Description 01/06/2025 Telephone [facility] MEDICINE [address] [place] [address] Mary Grullon RN Social History Tobacco Use Types Packs/Day Years [...] your housing situation today? I have navneet cem 12/20/[address] you li [...] Telephone Encounter - Mary Grullon RN - 01/06/2025 9:14 AM EST TC placed to pt via [employer] columnist/commentator ([employer] ID#[id number]) to inform of below PCP Varsha tamayo NP; Please inform patient of US result which was unremarkable. There is slight thickening of the endometrium, which could be due to her being on her menses. We'll keep monitoring it. Thanks . Pt verbalized understanding and denies questions or concerns at this time. documented in this encounter Plan of Treatment Upcoming Encounters Date Type Department Care Team (Late st Contact Info) Description 04/25/2025 9:00 AM EDT Office Visit [facility] MEDICINE [address] [place] [address] Varsha Sherman NP [address] [place] [address] documented as of this encounter Visit Diagnoses Not on filedocumented in this encounter Additional Health Concerns Assessment Noted Time PHQ-9 Depression Total Score: 0 06/19/20 24 3:44 PM EDT documented as of this encounter Care Teams Car Body Inspector Relationship Specialty Start Date End Date Varsha Sherman NP [address] [place] [address] PCP - General Family Medicine 12/21/23 documented as of this encounter
--- OUTSIDE RECORDS SUMMARY | 2025-01-23 18:20 | XMS_ITS | Encounter Summary ---
Author Organization [employer] Address [address] [place] [address] Care Team Providers Care Chief Radiologic Technologist Name Role Phone Varsha Sherman NP Primary Care Provider [phone] Reason for Visit * Reason Onset Date Comments May recall 4 mo f/u 01/14/2025 Encounter Details Date Type Department Care Team ([facility] st Contact Info) Description 01/14/2025 Telephone [facility] MEDICINE [address] [place] [address] [place] May recall 4 mo f/u Social History Tobacco Use Types Packs/Day Years [...] Telephone Encounter - Jeff Paulino MA - 01/14/2025 10:48 AM EST T/C placed medical billing coder spoke with pt, pt agreed to come in on 04/25/25 @ 9;00am for follow up appointment. Reminder will be sent. documented in this encounter Plan of Treatment Upcoming Encounters Date Type Department Care Team (Late st Contact Info) Description 04/25/2025 9:00 AM EDT Office Visit [facility] MEDICINE [address] [place] [address] Varsha Sherman NP [address] [place] [address] documented as of this encounter Visit Diagnoses Not on filedocumented in this encounter Additional Health Concerns Assessment Noted Time PHQ-9 Depression Total Score: 0 06/19/20 3:44 PM EDT documented as of this encounter Care Teams Chief Radiologic Technologist Relationship Specialty Start Date End Date Varsha Sherman NP [address] [place] [address] PCP - General Family Medicine 12/21/23 documented as of this encounter
--- OUTSIDE RECORDS SUMMARY | 2025-01-23 18:20 | XMS_ITS | Clinical Summary ---
Author Organization [employer] Address [address] [place] [address] 7 [place] [address] Care Team Providers Care Photo Specialist Name Role Phone Varsha Sherman NP Primary Care Provider [phone] Allergies Active Allergy Reactions Criticality Noted Date Comments Lactose Diarrhea 10/04/2023 Medications Sod Fluoride-Potass ium Nitrate 1.1-5 % pasteIndication s:Dental caries [place] teeth for 2 minutes, morning and night. Spit, do not rinse. Do not eat or drink anything for 30 minutes following brushing. 112 g 3 4 Active metroNIDAZOLE (Metrogel) 1 % gel APPLY TO THE AFFECTED AREA(S) TWICE DAILY 60 g 1 4 Active cholecalciferol (Vitamin D-3) 25 MCG tabletIndicatio ns:Other fatigue TAKE 1 TABLET BY MOUTH EVERY MORNING 30 tablet 3 4 Active ferrous gluconate (Fergon) 324 (38 Fe) MG tabletIndicatio ns:Microcytic anemia Take 1 tablet every other day in the morning with vitamin C 30 tablet 3 5 Active Ascorbic Acid (vitamin C) 250 MG tabletIndicatio ns:Microcytic anemia Take 1 tablet in the morning every other day with ferrous gluconate. 30 tablet 3 5 Active tranexamic acid (Lysteda) 650 MG tablet tabletIndicatio ns:Heavy Menstrual Bleeding Take 1,300 mg by mouth 3 times daily. For 5 days during menses Active Active Problems Problem Noted Date Diagnosed Date [...] Procedure(s): US pelvic and transvaginal Accession Number(s): [id number] cc: Clarisa Kern NP~ EXAMINATION: US PELVIS [...] Encounters Date Type Department Care Team Description 01/14/2025 Telephone [facility] [address] [place] [address] Jeff Paulino MA May recall 4 mo f/u 01/06/2025 Telephone [facility] [address] [place] [address] Mary Grullon, RENETTA 12/20/2024 9:00 AM EST Office Visit [facility] [address] [place] [address] Varsha Sherman NP Microcytic anemia (Primary Dx); Menorrhagia with regular cycle; Encounter for immunization; Encounter for screening mammogram for malignant neoplasm of breast; Overweight (BMI 25.0-29.9); Dietary counseling; Exercise counseling 12/20/2024 Refill [facility] [address] [place] [address] Varsha Sherman NP Menorrhagia with regular cycle 12/20/2024 Travel 12/13/2024 Telephone [facility]INE [address] [place] [address] Jeff Paulino MA chartprep 10/23/2024 Orders Only [facility] External Provider, [facility] from Last 3 Months Immunizations Name Administration [...] [facility] [address] [place] [address] Varsha Sherman NP [address] [place] [address] Health Maintenance Due Date Last Done Comments [...] Procedure Name Priority Date/Time Associated Diagnosis Comments US PELVIS TRANSVAGINAL Routine 01/01/2025 4:35 PM EST Microcytic anemia Menorrhagia with regular cycle BASIC METABOLIC PANEL Routine 12/20/2024 10:00 AM [...] CT/NG, TRICHOMONAS Routine 03/08/2022 4:13 PM EDT INTRAORAL - COMPLETE SERIES OF RADIOGRAPHIC IMAGES Routine 07/21/2021 12:00 AM EDT from Last 3 Months or Most Recently Relevant to Health Maintenance Results * US Pelvis Transvaginal (01/01/2025 4:35 PM EST) Anatomical Region Laterality Modality Pelvis Ultrasound 01/01/2025 4:35 PM EST Narrative 01/02/2025 7:26 AM EST ? [facility] ?[address] ?[place] [address] ? Ultrasound Report ? Signed ? Patient: Mone Skinner,Niurka ?MR#: [id number] ?? [id number] ? : 1980 ?Acct:[id number] ? Age/Sex: 44 / F ?ADM Date: 02/05/25 ? Loc: HO.US ? Attending Mathieu Sherman ? Ordering Physician: Varsha Sherman ?? Date of Service: 01/01/25 ?? Procedure(s): US pelvic and transvaginal ?? Accession Number(s): [id number] ? cc: Varsha Sherman ? EXAMINATION: ? US PELVIS ? CLINICAL INFORMATION: ? Menorrhagia ? COMPARISON: ?? Ultrasound pelvis 04/04/2022 ? TECHNIQUE: ?? Ultrasound of the pelvis is performed using both transabdominal and ?? transvaginal transducers along with Doppler. Transvaginal imaging is ?? performed due to inadequate visualization transabdominally. ? FINDINGS: ?? Uterus: ?? The uterus is anteverted , anteflexed and measures 8.7 x 3.0 x 5.5 cm. ? The double wall endometrial thickness 1.5 cm on transvaginal ?? ultrasound. ? The uterus is smooth in contour and has normal myometrial echogenicity. ?No visible fibroid. ? Adnexa: ?? Both ovaries are visualized. There is normal color flow to the adnexa. ?? There is no ovarian torsion. ??There is no pelvic ascites or fluid ?? collection. ? Right ovary measures 2.7 x 1.9 x 2.1 cm. Volume 5.6 mL. Previously ?? right ovary measured 2.9 x 1.4 x 1.3 cm. ? Left ovary measures 1.7 x 1.5 x 1.1 cm. Volume 1.5 mL . Previously left ?? ovary measured 2.6 x 1.4 x 1.8 cm. ? There is no free fluid in the cul-de-sac. ? US/US pelvic and transvaginal ?? IMPRESSION: ?? Unremarkable uterus and ovaries. Thickened endometrium measuring 1.5 cm ?? could be normal considering patient is actively having menstrual cycles. ? Electronically signed by: ??Yemi Welch MD ??01/02/2025 07:23 AM EST RP ? Dictated By: ?Rebekah,Yemi S MD ? Signed By: ?<Electronically signed by Yemi S MD Rebekah in OV> ?01/02/25722 ? DD/ 1635 ? TD/TT: 01/01/25 1642 ? Lead Network Engineer: MSM ? Procedure Note Dionisio Gaxiola - 01/02/[address] [address] Ultrasound Report Signed Patient: Jerson Hedrickjass#: [id number] : 1980Acct:[id number] Age/Sex: 44 / FADM Date: 01/01/25 Loc: HO.US Attending Dr: Varsha Sherman Ordering Physician: Varsha Sherman Date of Service: 01/01/25 Procedure(s): US pelvic and transvaginal Accession Number(s): [id number] cc: Varsha Sherman EXAMINATION: US PELVIS CLINICAL INFORMATION: Menorrhagia COMPARISON: Ultrasound pelvis 04/04/2022 TECHNIQUE: Ultrasound of the pelvis is performed using both transabdominal and transvaginal transducers along with Doppler. Transvaginal imaging is performed due to inadequate visualization transabdominally. FINDINGS: Uterus: The uterus is anteverted , anteflexed and measures 8.7 x 3.0 x 5.5 cm. The double wall endometrial thickness 1.5 cm on transvaginal ultrasound. The uterus is smooth in contour and has normal myometrial echogenicity. No visible fibroid. Adnexa: Both ovaries are visualized. There is normal color flow to the adnexa. There is no ovarian torsion. There is no pelvic ascites or fluid collection. Right ovary measures 2.7 x 1.9 x 2.1 cm. Volume 5.6 mL. Previously right ovary measured 2.9 x 1.4 x 1.3 cm. Left ovary measures 1.7 x 1.5 x 1.1 cm. Volume 1.5 mL . Previously left ovary measured 2.6 x 1.4 x 1.8 cm. There is no free fluid in the cul-de-sac. US/US pelvic and transvaginal IMPRESSION: Unremarkable uterus and ovaries. Thickened endometrium measuring 1.5 cm could be normal considering patient is actively having menstrual cycles. Electronically signed by: Yemi Welch MD 01/02/2025 07:23 AM EST Dictated By: Yemi Welch MD Signed By: <Electronically signed by Yemi Welch MD in OV> 01/02/25 0723 DD/ 1635 TD/TT: 01/01/25 1642 Lead Network Engineer: [facility] [place] Varsha Sherman SURVEY DIRECTOR IMG US PROCEDURES Edited Result - Final * (ABNORMAL) CBC auto differential (12/20/2024 10:00 AM EST) Only the most recent of2 resultswithin the time period is included. White Blood Count 5.1 4.8 - 10.8 X10*3/uL [facility] Red Blood Count 4.27 4.20 - 5.50 X10*6/uL [facility] Hemoglobin 9.5(L) 12.0 - 16.0 g/dl [facility] Hematocrit 30.8(L) 37.0 - 47.0 % [facility] Mean Corpuscular Volume 72.1(L) 80.0 - 98.0 fL [facility] Mean Corpuscular Hemoglobin 22.2(L) 27.0 - 33.0 pg [facility] Mean Corpuscular HGB Conc 30.8(L) 31.0 - 35.0 g/dl [facility] Red Cell Distribution Width 16.9(H) 11.0 - 16.0 % [facility] Platelet Count 310 160 - 400 X10*3/uL [facility] Mean Platelet Volume 10.1 9.4 - 12.3 fL [facility] Neutrophils Percent Auto 56.7 45 - 73 % [facility] Imm Gran Pct Auto 0.2 0.0 - 0.4 % [facility] Lymphocytes Percent Auto 34.0 20 - 40 % [facility] Monocytes Percent Auto 6.5 2 - 11 % [facility] Eosinophils Percent Auto 2.2 0 - 4 % [facility] Basophils Percent Auto 0.4 0 - 2 % [facility] NRBC Pct Auto 0.0 0.0 - 0.2 /100WBC [facility] Neutrophils Absolute Auto 2.9 2.0 - 8.3 x10*3/uL [facility] Imm Gran Abs Auto 0.01 0.00 - 0.03 X10*3/uL [facility] Lymphocytes Absolute Auto 1.7 1.2 - 4.9 X10*3/uL [facility] Monocytes Absolute Auto 0.3 0.1 - 1.2 X10*3/uL [facility] Eosinophils Absolute Auto 0.1 0.0 - 0.4 X10*3/uL [facility] Basophils Absolute Auto 0.0 0.0 - 0.2 X10*3/uL [facility] NRBC Abs Auto 0.000 0.0 - 0.012 X10*3/uL [facility] Blood Venous blood specimen / Unknown 12/20/2024 10:00 AM EST 12/20/2024 11:38 AM EST [facility] SURVEY DIRECTOR LAB BLOOD ORDERABLES Final Resu lt Performing Organization Address [facility]/ZIP Co de Phone Number [facility] [address] [place] [phone] * (ABNORMAL) Iron And Total Iron Binding Capacity (12/20/2024 10:00 AM EST) Iron 14(L) 30 - 160 mcg/dL [facility] Total Iron Binding Capacity 400 228 - 428 mcg/dL [facility] Percent Iron Saturation 4(L) 15 - 50 % [facility] Unsaturated Iron Binding 386 ug/dL [facility] Blood Venous blood specimen / Unknown 12/20/2024 10:00 AM EST 12/20/2024 11:38 AM EST [facility] SURVEY DIRECTOR LAB BLOOD ORDERABLES Final Resu lt Performing Organization Address [facility] Co de Phone Number [facility] [address] [place] [phone] * (ABNORMAL) Basic Metabolic Panel (12/20/2024 10:00 AM EST) Only the most recent of2 resultswithin the time period is included. Sodium 141 135 - 145 mmol/L [facility] Potassium 3.8 3.3 - 5.1 mmol/L [facility] Chloride 112(H) 96 - 108 mmol/L [facility] Carbon Dioxide 23 22 - 29 mmol/L [facility] Anion Gap 10(L) 12 - 20 [facility] Urea Nitrogen (BUN) 9 9 - 16 mg/dL [facility] Creatinine, Serum 0.62 0.5 - 1.4 mg/dL [facility] Estimated Glomerular Filt Rate >60 [facility] Comment:Chronic Kidney Disea se: Estimated GFR < 60 mL/min/1.97d5Vqhjuc Kidney Disease: Estimated GFR < 15 mL/min/1.73m2 Glucose 68 60 - 115 mg/dL [facility] Calcium 8.8 8.4 - 10.2 mg/dL [facility] Blood Venous blood specimen / Unknown 12/20/2024 10:00 AM EST 12/20/2024 11:38 AM EST Varsha Sherman SURVEY DIRECTOR LAB BLOOD ORDERABLES Final Resu lt [facility] [address] [place] [phone] [phone] * CT Head w/o Contrast (10/23/2024 7:25 PM EST) Anatomical Region Laterality Modality Head, Neck Computed Tomogra phy 10/23/2024 7:25 PM EST Narrative 10/23/2024 9:37 PM EST ? [facility] ?[address] ?[place] [address] ? CT Scan Report ? Signed ? Patient: Mone Skinner,Niurka ?MR#: [id number] ?? [id number] ? : 1980 ?Acct:[id number] ? Age/Sex: 44 / F ?ADM Date: //24 ? Loc: HO.ED ? Attending Dr: ? Ordering Physician: Mónica Colunga ?? Date of Service: 10/23/24 ?? Procedure(s): CT head/brain wo IV con ?? Accession Number(s): [id number] ? cc: Varsha Sherman; Mónica Colunga ? [...] by Nikos Conrad DO in OV> ? 10/23/242132 ? DD/ 24 ? TD/TT: 10/23/241924 ? Lead Network Engineer: JL ? Procedure Note Minor, Dionisio - 10/23/[address] [address] [address] Scan Report Signed Patient: Jacob Hedrick#: [id number] : 1980Acct:[id number] Age/Sex: 44 / FADM Date: 10/23/24 Loc: HO.ED Attending Dr: Ordering Physician: Mónica Colunga Date of Service: 10/23/24 Procedure(s): CT head/brain wo IV con Accession Number(s): [id number] cc: Varsha Sherman; Mónica Colunga EXAMINATION: CT [...] in OV> 10/23/242132 DD/ 24 TD/TT: 10/23/241924 Lead Network Engineer: [facility] External Provider IMG CT PROCEDURES Edited Result - Final * SARS-CoV-2 RNA, Influenza A/B, and RSV RNA, Ql NAAT (10/23/2024 7:10 PM EST) Influenza A PCR NEGATIVE Negative [facility] Influenza B PCR NEGATIVE Negative [facility] Resp Syncy Virus RNA Qual PCR NEGATIVE Negative [facility] SARS COV2 PCR NEGATIVE Negative [facility] Comment:All test results mus t [...] use by authorized laboratories.Testing performed on the [email or web address] GeneXpert utilizingreal-time RT-PCR.All SARS CoV2 and positive influenza A/B results arereported to [facility]. 10/23/2024 7:10 PM EST 10/23/2024 7:14 PM EST Generic External Data Provider LAB MICROBIOLOGY - GENERAL ORDERABLES Final Result [facility] [address] [place] [phone] * Prothrombin Time-INR (10/23/2024 7:10 PM EST) Prothrombin Time 11.7 10.9 - 12.4 SEC [facility] INTERNATIONAL NORM RATIO 1.0 0.9 - 1.1 [facility] Comment:INTERNATIONAL NORMAL IZED RATIO [...] ORDERAB LES Final Result Performing Organization Address City/[facility]/ZIP Co de Phone Number [facility] [address] [place] [phone] * Magnesium (10/23/2024 7:10 PM EST) Magnesium 2.3 1.6 - 2.6 mg/dL [facility] 10/23/2024 7:10 PM EST 10/23/2024 7:14 PM EST us Generic External Data Provider LAB BLOOD ORDERAB LES Final Result Performing Organization Address [facility] de Phone Number [facility] [address] [place] [phone] * (ABNORMAL) Hepatic Function Panel (10/23/2024 7:10 PM EST) Bilirubin, Total 0.2 0.0 - 1.0 mg/dL [facility] Bilirubin, Direct <0.2 0.0 - 0.5 mg/dL [facility] Aspartate Amino Transferase 28 5 - 31 U/L [facility] Alanine Aminotransferase 37(H) 0 - 31 U/L [facility] Total Protein 7.2 6.5 - 8.0 g/dL [facility] Albumin Level 4.0 3.5 - 5.0 g/dL [facility] Alkaline Phosphatase 91 39 - 117 U/L [facility] 10/23/2024 7:10 PM EST 10/23/2024 7:14 PM EST Generic External Data Provider LAB BLOOD ORDERAB LES Final Result Performing Organization Address [facility] Co de Phone Number [facility] [address] [place] [phone] * BI Mammogram Screening Tomosynthesis Bilateral (01/18/2024 3:45 PM EST) Anatomical Region Laterality Modality Breast Bilateral Mammography 01/18/2024 3:45 PM EST Narrative 02/11/2024 9:43 AM EDT ? [facility] ? [address] ?[place], [place] [address] ? Mammography Report ? Signed ? Patient: Niurka Hedrick ?MR#: [id number] ?? [id number] ? : 1980 ?Acct:[id number] ? Age/Sex: 43 / F ?ADM Date: 01/18/24 ? Loc: HO.MAMMO ? Attending Dr: Varsha Sherman ? Ordering Physician: Varsha Sherman ?Results: 1Negative ? Date of Service: 01/18/24 ?Follow Up: 1 Year From Orig ?? inal Mammogram ? Procedure(s): MM tomosynthesis screening BI ?? Accession Number(s): [id number] ? cc: Varsha Sherman ? EXAMINATION: ?? [...] by Donna Jenkins MD in OV> ? 02/11/24938 ? DD/ 1545 ? TD/TT: ? Lead Network Engineer: ? Procedure Note Minor, Image - 02/11/2024 [facility] [address] [place] [address] Mammography Report Signed Patient: Jacob Hedrick#: [id number] : 1980Acct:[id number] Age/Sex: 43 / FADM Date: 01/18/24 Loc: HO.MAMMO Attending Dr: Varsha Sherman Ordering Physician: Varsha ShermanResults: 1Negative Date of Service: 01/18/24Follow Up: 1 Year From Orig inal Mammogram Procedure(s): MM tomosynthesis screening BI Accession Number(s): [id number] cc: Varsha Sherman EXAMINATION: MM SCREENING DIGITAL [...] in OV> 02/11/24 0939 DD/ 1545 TD/TT: Lead Network Engineer: Varsha Sherman NP IMG BI PROCEDURES Edited Result - Final * Hepatitis C Antibody with Reflex to HCV, RNA, Quantitative, Real-Time PCR (10/04/2023 4:21 PM EST) Hepatitis C Antibody Nonreactive Nonreactive [facility] Comment:Antibodies to HCV no t detected; does not exclude early acuteHCV infection. Blood Venous blood specimen / Unknown 10/04/2023 4:21 PM EST 10/04/2023 5:24 PM EST Janeth Wood MD LAB BLOOD ORDERABLES Final Result [facility] [address] [place] [phone] * HIV-1/2 Antigen and Antibodies, Fourth Generation, with Reflexes (10/04/2023 4:21 PM EST) HIV AB/AG Nonreactive Nonreactive [facility] Comment:HIV-1 p24 Ag and/or HIV-1/HIV-2 Ab not detected.A test result that is nonreactive does not exclude thepossibility of exposure to or infection with HIV-1 and/orHIV-2. Nonreactive results in this assay for individualswith prior exposure to HIV-1 and/or HIV-2 may be due toantigen and antibody levels that are below the limit ofdetection of this assay.The [employer] Al[employer] HIV Ag/Ab Combo assay result andsupplemental assay results should be interpreted inconjunction with the patient's clinical presentation,history and other laboratory results. If the results areinconsistent with clinical evidence, additional testing issuggested to confirm the result. Blood Venous blood specimen / Unknown 10/04/2023 4:21 PM EST 10/04/2023 5:24 PM EST us Janeth Wood MD LAB BLOOD ORDERABLES Final Result [facility] [address] [place] [phone] * THINPREP TIS PAP AND HPV mRNA E6/E7, CT/NG, TRICH (03/08/2022 4:13 PM EDT) Chlamydia trachomatis RNA, TMA, Urogenital NOT DETECTED NOT DETECTED [facility] Clinical Information: None given [facility] COMMENT [facility] Comment: The analytical performance characteristics of this assay, when used to test SurePath(TM) specimens have been determined by [facility]. The modifications have not been cleared or approved by the FDA. This assay has been validated pursuant to the CLIA regulations and is used for clinical purposes. ?? For additional information, please refer to https://education.BettingXpert.HistoPathway/faq/YBV685 (This link is being provided for information/ [...] slide preparation; their use is not recommended. Supervisor Tank Cleaning: [facility] Comment: MSM, CT(ASCP) CT screening location: [address] ??[address] HPV nRNA E6/E7 Not Detected Not Detected [facility] Comment: Methodology: Buckle Sorter-Mediated Amplification This assay detects E6/E7 viral messenger RNA (mRNA) from 14 high-risk HPV types (16,18,31,33,35,39,45,51,52,56,58,59,66,68). ? The analytical performance characteristics of this assay have been determined by [employer]. The modifications have not been cleared or approved by the FDA. This assay has been validated pursuant to the CLIA regulations and is used for clinical purposes. ?? For additional information, please refer to http://Shop pirate.1000jobboersen.de/faq/OIF943p0 (This link if provided for information/ educational [...] of this assay have been determined by [employer]. The modifications have not been cleared or approved by the FDA. This assay has been validated pursuant to the CLIA regulations and is used for clinical purposes. ?? For additional information, please refer to http://Shop pirate.1000jobboersen.de/ faq/Trichomonastma (This link is being provided for information/ educational purposes only.) ?? 03/08/2022 4:13 PM EDT Clarisa Kern RF TEST ENGINEER LAB PATHOLOGY ORDERABLES Final Result [facility] [address] from Last 3 Months or Most Recently Relevant to Health Maintenance [facility] PARTIAL (MEDICAID) * Guarantor: Niurka Hedrick Account Type Relation to Patient Date of Phone Billing Address [facility] [place] * Guarantor: Niurka Hedrick Account Type Relation to Patient Date of Phone Billing Address Personal/Family Self [facility] [place] Care Teams Photo Specialist Relationship Specialty Start Date End Date Varsha Sherman NP [address] [place] [address] PCP - General Family Medicine 12/21/23
== END 2025-01-23 15:01 | disposition home or self-care (01) ==
LOC: HO.MAMMO 15:00
PROVIDERS: PCP Nurse Practitioner; Visit Provider Nurse Practitioner
DX: Z12.31 Encounter for screening mammogram for malignant neoplasm of breast (principal)
CPT/HCPCS: 77063; 77067

== ENCOUNTER → 2025-01-23 15:30 | Outpatient (BNV) | payer OTHER, SELFPAY | PROVIDERS: PCP Nurse Practitioner; Visit Provider Internal Medicine | DX: Z12.31 Encounter for screening mammogram for malignant neoplasm of breast (principal) | CPT/HCPCS: 77063; 77067 ==

== ENCOUNTER 2025-04-25 17:17 | Outpatient (REF) | payer OTHER, SELFPAY ==
[2025-04-26 11:40] LABS: Bacterial Vaginosis PCR NEGATIVE (Negative); Candida Group PCR DETECTED (Not Detect); Candida glab krusei PCR NOT DETECTED (Not Detect); Trichomonas vaginalis PCR NOT DETECTED (Not Detect)
== END 2025-04-25 17:18 | disposition home or self-care (01) ==
LOC: HO.HHCLNP 17:17
PROVIDERS: Visit Provider Nurse Practitioner
DX: N89.8 Other specified noninflammatory disorders of vagina (principal)
CPT/HCPCS: 81515

== ENCOUNTER 2025-05-02 09:43 | Outpatient (REF) | payer OTHER, SELFPAY ==
--- OUTSIDE RECORDS SUMMARY | 2025-05-02 10:20 | XMS_ITS | Encounter Summary ---
Author Organization [facility] Address [address] [place] [address] Care Team Providers Care Superintendent Generating Plant Name Role Phone Fátima Deluna Primary Care Provider [phone] Varsha Sherman NP Primary Care Provider [phone] Eduarda Hadley MD Primary Care Provider [phone] AppraVarsha herring NP Primary Care Provider [phone] Encounter Details Date Type Department Care Team (Latest Contact Info) Description 07/21/2021 Abstract [facility] CONVERSIONS Dental, Provider, DDS Social History [...] on filedocumented in this encounter Care Teams Superintendent Generating Plant Relationship Specialty Start Date End Date Fátima Deluna FNP [address] [place] [address] PCP - General Family Medicine 07/21/22 09/04/23 Varsha Sherman NP [address] [place] [address] PCP - General Family Medicine 09/05/23 10/29/23 Eduarda Hadley MD [address] [place] [address] PCP - General Family Medicine 10/30/23 12/20/23 Varsha Sherman NP [address] [place] [address] PCP - General Family Medicine 12/21/23 documented as of this encounter
[2025-05-02 11:04] LABS: MANUAL DIFF FLAG NO
[2025-05-02 11:24] LABS: Basophils Percent Auto 0.6 % (0-2); Eosinophils Absolute Auto 0.2 X10*3/uL (0.0-0.4); Eosinophils Percent Auto 3.9 % (0-4); Hematocrit 35.2 % (37.0-47.0); Hemoglobin 11.8 g/dl (12.0-16.0); Imm Gran Abs Auto 0.02 X10*3/uL (0.00-0.03); Imm Gran Pct Auto 0.4 % (0.0-0.4); Immature Retic Fraction 8.6 % (3.0-15.9); Lymphocytes Absolute Auto 1.9 X10*3/uL (1.2-4.9); Lymphocytes Percent Auto 37.2 % (20-40); Mean Corpuscular HGB Conc 33.5 g/dl (31.0-35.0); Mean Corpuscular Hemoglobin 27.8 pg (27.0-33.0); Mean Corpuscular Volume 82.8 fL (80.0-98.0); Monocytes Absolute Auto 0.3 X10*3/uL (0.1-1.2); Monocytes Percent Auto 5.6 % (2-11); Neutrophils Absolute Auto 2.7 x10*3/uL (2.0-8.3); Neutrophils Percent Auto 52.3 % (45-73); Platelet Count 284 X10*3/uL (160-400); Red Blood Count 4.25 X10*6/uL (4.20-5.50); Red Cell Distribution Width 14.2 % (11.0-16.0); Retic HGB Equivalent 33.2 pg (30.0-35.0); Reticulocyte Percent 1.5 % (0.5-1.8); Reticulocytes Absolute 0.062 X10*6/uL (0.026-0.095); White Blood Count 5.2 X10*3/uL (4.8-10.8)
[2025-05-02 11:30] LABS: Estimated Average Glucose 103 mg/dL; Hemoglobin A1c % 5.2 % (<6.0)
[2025-05-02 11:38] LABS: Anion Gap 11 (12-20); Blood Urea Nitrogen 8 mg/dL (9-16); Calcium 8.5 mg/dL (8.4-10.2); Carbon Dioxide 24 mmol/L (22-29); Chloride 110 mmol/L (96-108); Cholesterol 164 mg/dL (<200); Estimated Glomerular Filt Rate > 60; Glucose Random 88 mg/dL (60-115); HDL Cholesterol 52 mg/dL (>40); Iron 115 mcg/dL (30-160); LDL Cholesterol Calculated 97 mg/dL (<100); Percent Iron Saturation 32 % (15-50); Potassium 3.8 mmol/L (3.3-5.1); Sodium 141 mmol/L (135-145); Total Iron Binding Capacity 358 mcg/dL (228-428); Triglycerides 79 mg/dL (<150); Unsaturated Iron Binding 243 ug/dL
== END 2025-05-02 09:44 | disposition home or self-care (01) ==
LOC: HO.HHCL 09:43
PROVIDERS: Visit Provider Nurse Practitioner
DX: E87.8 Other disorders of electrolyte and fluid balance, not elsewhere classified (principal); D50.9 Iron deficiency anemia, unspecified; E66.9 Obesity, unspecified
CPT/HCPCS: 36415; 80048; 80061; 83036; 83540; 85025; 85045

== ENCOUNTER 2025-11-03 10:04 | Outpatient (REF) | payer OTHER, SELFPAY ==
[2025-11-03 11:40] LABS: MANUAL DIFF FLAG NO
[2025-11-03 11:51] LABS: Hematocrit 37.8 % (37.0-47.0); Hemoglobin 12.5 g/dl (12.0-16.0); Imm Gran Abs Auto 0.03 X10*3/uL (0.00-0.03); Imm Gran Pct Auto 0.4 % (0.0-0.4); Lymphocytes Absolute Auto 1.9 X10*3/uL (1.2-4.9); Mean Corpuscular HGB Conc 33.1 g/dl (31.0-35.0); Mean Corpuscular Hemoglobin 27.2 pg (27.0-33.0); Mean Corpuscular Volume 82.4 fL (80.0-98.0); NRBC Abs Auto 0.000 X10*3/uL (0.0-0.012); NRBC Pct Auto 0.0 /100WBC (0.0-0.2); Platelet Count 277 X10*3/uL (160-400); Red Blood Count 4.59 X10*6/uL (4.20-5.50); White Blood Count 7.4 X10*3/uL (4.8-10.8)
[2025-11-03 12:29] LABS: Iron 61 mcg/dL (30-160); Percent Iron Saturation 18 % (15-50); Total Iron Binding Capacity 345 mcg/dL (228-428); Unsaturated Iron Binding 284 ug/dL
== END 2025-11-03 10:05 | disposition home or self-care (01) ==
LOC: HO.HHCL 10:04
PROVIDERS: PCP Nurse Practitioner; Visit Provider Nurse Practitioner
DX: D50.0 Iron deficiency anemia secondary to blood loss (chronic) (principal); R30.0 Dysuria
CPT/HCPCS: 36415; 83540; 85025; 87086